=== PATIENT | female | born 1960 | race African-American/Black ===

== ENCOUNTER 2017-09-09 05:21 | Inpatient (IN) | payer OTHER ==
[2017-09-09 05:50] LABS: ADD MAN DIFF? NO
[2017-09-09 05:57] LABS: BASO % 1 % (0-3); EOS # 0.1 x10^3/uL (0.0-0.7); EOS % 2 % (0-3); HEMATOCRIT 41.3 % (36.0-47.0); HEMOGLOBIN 13.9 g/dL (12.0-15.5); LYMPH # 3.7 x10^3/uL (1.0-4.8); LYMPH % 42 % (24-48); MEAN CORPUSCULAR HEMOGLOBIN 28 pg (25-35); MEAN CORPUSCULAR HGB CONC 34 g/dL (31-37); MEAN CORPUSCULAR VOLUME 85 fL (79-100); MONO # 0.5 x10^3/uL (0.0-1.1); MONO % 6 % (0-9); NEUT # 4.5 x10^3uL (1.8-7.7); NEUT % 51 % (31-73); PLATELET COUNT 229 x10^3/uL (140-400); RED BLOOD COUNT 4.88 x10^6/uL (3.50-5.40); RED CELL DISTRIBUTION WIDTH 14.9 % (11.5-14.5); WHITE BLOOD COUNT 8.8 x10^3/uL (4.0-11.0)
[2017-09-09 06:08] LABS: ANION GAP 12 (6-14); BLOOD UREA NITROGEN 10 mg/dL (7-20); BUN/CREATININE RATIO 13 (6-20); CALCIUM 8.6 mg/dL (8.5-10.1); CARBON DIOXIDE 26 mmol/L (21-32); CHLORIDE 105 mmol/L (98-107); CREATININE 0.8 mg/dL (0.6-1.0); GFR 89.5; GLUCOSE 116 mg/dL (70-99); POTASSIUM 3.3 mmol/L (3.5-5.1); SODIUM 143 mmol/L (136-145)
[2017-09-09 06:10] LABS: BILIRUBIN,URINE NEGATIVE (NEG); CLARITY,URINE CLEAR; COLOR,URINE YELLOW; GLUCOSE,URINE NEGATIVE (NEG); NITRITE,URINE NEGATIVE (NEG); PROTEIN,URINE NEGATIVE (NEG-TRACE); UROBILINOGEN,URINE 0.2 mg/dL (0.2 mg/dL)
[2017-09-09 06:14] LABS: ALBUMIN 3.5 g/dL (3.4-5.0); TOTAL PROTEIN 7.2 g/dL (6.4-8.2)
[2017-09-09 06:15] LABS: ALBUMIN/GLOBULIN RATIO 0.9 (1.0-1.7); ALK PHOS 90 U/L (46-116); ALT (SGPT) 21 U/L (14-59); AST (SGOT) 17 U/L (15-37); LIPASE 99 U/L (73-393); TOTAL BILIRUBIN 0.4 mg/dL (0.2-1.0)
[2017-09-09 06:16] LABS: SQUAMOUS EPITHELIAL CELL,UR FEW /LPF
[2017-09-09 06:17] LABS: BACTERIA,URINE FEW /HPF (0-FEW); RBC,URINE OCC /HPF (0-2); YEAST,URINE PRESENT /HPF
[2017-09-09] MEDS: ONDANSETRON PF 4 MG/2 ML VIAL. IV (07:00)
[2017-09-09] MEDS: fentaNYL PF VIAL 100 MCG/2 ML VIAL IV ×4 (07:00→20:21)
[2017-09-09] MEDS: IV NORMAL SALINE 1000ML BAG 1,000 ML IV ×4 (07:00→16:33)
[2017-09-09 07:20] LABS: TROPONINI < 0.017 ng/mL (0.000-0.055)
[2017-09-09 07:23] LABS: CKMB INDEX 0.7 % (0-4); CKMB MASS 3.7 ng/mL (0.0-3.6); CREATINE KINASE 547 U/L (26-192)
[2017-09-09] MEDS: ASPIRIN CHEWABLE 81 MG TABLET. PO (07:55)
[2017-09-09] MEDS ORDERED: ONDANSETRON PF 4 MG/2 ML VIAL. IV (08:45)
[2017-09-09] MEDS: NITROGLYCERIN OINT 1 GM PACKET. TP ×4 (09:00→23:24)
[2017-09-09 11:57] LABS: TROPONINI < 0.017 ng/mL (0.000-0.055)
[2017-09-09] MEDS: PANTOPRAZOLE IV PUSH 40 MG VIAL. IVP (14:37)
[2017-09-09 14:51] LABS: TROPONINI < 0.017 ng/mL (0.000-0.055)
[2017-09-10] MEDS: IV NORMAL SALINE 1000ML BAG 1,000 ML IV (00:13)
[2017-09-10] MEDS: fentaNYL PF VIAL 100 MCG/2 ML VIAL IV ×3 (03:19→14:04)
[2017-09-10 04:06] LABS: ADD MAN DIFF? NO
[2017-09-10 04:25] LABS: BASO # 0.1 x10^3/uL (0.0-0.2); BASO % 1 % (0-3); EOS # 0.1 x10^3/uL (0.0-0.7); EOS % 2 % (0-3); HEMOGLOBIN 13.5 g/dL (12.0-15.5); LYMPH # 3.3 x10^3/uL (1.0-4.8); LYMPH % 46 % (24-48); MEAN CORPUSCULAR HEMOGLOBIN 29 pg (25-35); MEAN CORPUSCULAR HGB CONC 34 g/dL (31-37); MEAN CORPUSCULAR VOLUME 85 fL (79-100); MONO # 0.3 x10^3/uL (0.0-1.1); MONO % 4 % (0-9); NEUT # 3.4 x10^3uL (1.8-7.7); NEUT % 48 % (31-73); PLATELET COUNT 211 x10^3/uL (140-400); RED CELL DISTRIBUTION WIDTH 15.2 % (11.5-14.5); WHITE BLOOD COUNT 7.3 x10^3/uL (4.0-11.0)
[2017-09-10 05:17] LABS: ALBUMIN 3.1 g/dL (3.4-5.0); ALBUMIN/GLOBULIN RATIO 0.9 (1.0-1.7); ALK PHOS 76 U/L (46-116); ALT (SGPT) 17 U/L (14-59); ANION GAP 11 (6-14); AST (SGOT) 15 U/L (15-37); BLOOD UREA NITROGEN 3 mg/dL (7-20); BUN/CREATININE RATIO 5 (6-20); CALCIUM 8.2 mg/dL (8.5-10.1); CARBON DIOXIDE 25 mmol/L (21-32); CHLORIDE 109 mmol/L (98-107); CREATININE 0.6 mg/dL (0.6-1.0); GFR 124.7; GLUCOSE 110 mg/dL (70-99); POTASSIUM 3.1 mmol/L (3.5-5.1); SODIUM 145 mmol/L (136-145); TOTAL BILIRUBIN 0.4 mg/dL (0.2-1.0); TOTAL PROTEIN 6.5 g/dL (6.4-8.2)
[2017-09-10] MEDS: NITROGLYCERIN OINT 1 GM PACKET. TP ×4 (05:17→23:52)
[2017-09-10] MEDS ORDERED: PANTOPRAZOLE IV PUSH 40 MG VIAL. IVP (07:30)
[2017-09-10] MEDS: PANTOPRAZOLE IV PUSH 40 MG VIAL. IVP (09:02)
[2017-09-10] MEDS ORDERED: oxyCODONE/APAP 5/325 1 TAB TABLET PO (10:15)
[2017-09-10] MEDS ORDERED: PROCHLORPERAZINE 10 MG/2 ML VIAL. IV (11:45)
[2017-09-10] MEDS ORDERED: MORPHINE SULFATE 2 MG/ML DISP.SYRIN. IV (11:45)
[2017-09-10] MEDS ORDERED: LIDOCAINE 1% PF 2 ML VIAL. ID (11:45)
[2017-09-10] MEDS ORDERED: fentaNYL PF VIAL 100 MCG/2 ML VIAL IV ×2 (11:45)
[2017-09-10] MEDS: IV RINGERS,LACTATED 1000ML 1,000 ML IV (12:20)
[2017-09-10] MEDS ORDERED: PROPOFOL 40 ML IV (12:42)
[2017-09-10] MEDS ORDERED: LIDOCAINE 2% 100 MG/5 ML SYRINGE. (12:42)
[2017-09-10] MEDS: LIDOCAINE (700MG/PATCH) PATCH. TD (14:04)
[2017-09-10] MEDS: CAPSAICIN 0.025% TOPICAL CREAM 60GM TUBE. TP ×2 (14:12→19:48)
[2017-09-10] MEDS: POTASSIUM CHLORIDE 20 MEQ TABLET.ER. PO (16:17)
[2017-09-10] MEDS: oxyCODONE/APAP 10/325 1 TAB TABLET PO ×2 (19:46→23:47)
[2017-09-10] MEDS: IBUPROFEN 400 MG TABLET. PO (19:47)
[2017-09-10] MEDS: LISINOPRIL 10 MG TABLET PO (20:45)
[2017-09-10] MEDS ORDERED: hydrALAZINE 20 MG/ML VIAL. IVP (20:45)
[2017-09-10] MEDS: POLYETHYLENE GLYCOL 3350 17 GM PACKET. PO (23:47)
[2017-09-10] MEDS: DOCUSATE SODIUM 100 MG CAPSULE. PO (23:47)
[2017-09-10] MEDS: amLODIPine BESYLATE 10 MG TABLET PO (23:48)
[2017-09-11] MEDS: oxyCODONE/APAP 10/325 1 TAB TABLET PO (06:05)
[2017-09-11] MEDS: NITROGLYCERIN OINT 1 GM PACKET. TP ×2 (06:05→12:00)
[2017-09-11] MEDS: ONDANSETRON PF 4 MG/2 ML VIAL. IV (08:16)
[2017-09-11] MEDS ORDERED: NON FORMULARY ITEM (Pantoprazole Sodium (Protonix) 40 MG) PO (09:00)
[2017-09-11] MEDS: POLYETHYLENE GLYCOL 3350 17 GM PACKET. PO ×2 (10:07→13:00)
[2017-09-11] MEDS: CAPSAICIN 0.025% TOPICAL CREAM 60GM TUBE. TP ×3 (10:07→21:13)
[2017-09-11] MEDS: LIDOCAINE (700MG/PATCH) PATCH. TD (10:07)
[2017-09-11] MEDS: DOCUSATE SODIUM 100 MG CAPSULE. PO ×2 (10:08→21:13)
[2017-09-11] MEDS: CETIRIZINE HCL 10 MG TABLET. PO (10:08)
[2017-09-11] MEDS: PANTOPRAZOLE 40 MG TABLET.DR. PO (10:08)
[2017-09-11] MEDS: hydroCHLOROthiazide 25 MG TABLET PO (10:08)
[2017-09-11] MEDS: amLODIPine BESYLATE 10 MG TABLET PO (10:08)
[2017-09-11 10:54] LABS: POTASSIUM 3.6 mmol/L (3.5-5.1)
[2017-09-11] MEDS ORDERED: LIDO:MAALOX:DONNATAL 1:1:1 15 ML SINGLE DOSE SWSW (12:30)
[2017-09-11] MEDS ORDERED: fentaNYL PF VIAL 100 MCG/2 ML VIAL IV (14:00)
[2017-09-11] MEDS ORDERED: ONDANSETRON PF 4 MG/2 ML VIAL. IV (14:00)
[2017-09-11] MEDS ORDERED: ONDANSETRON ODT 4 MG TAB.RAPDIS. PO (14:00)
[2017-09-11] MEDS: BISACODYL 10 MG SUPP.RECT. PR (14:59)
[2017-09-11] MEDS: traMADol 50 MG TABLET PO (21:15)
[2017-09-12] MEDS: POLYETHYLENE GLYCOL 3350 17 GM PACKET. PO (09:56)
[2017-09-12] MEDS: LIDOCAINE (700MG/PATCH) PATCH. TD (09:57)
[2017-09-12] MEDS: CAPSAICIN 0.025% TOPICAL CREAM 60GM TUBE. TP (09:57)
[2017-09-12] MEDS: CETIRIZINE HCL 10 MG TABLET. PO (09:57)
[2017-09-12] MEDS: DOCUSATE SODIUM 100 MG CAPSULE. PO (09:58)
[2017-09-12] MEDS: PANTOPRAZOLE 40 MG TABLET.DR. PO (09:58)
[2017-09-12] MEDS: hydroCHLOROthiazide 25 MG TABLET PO (09:58)
[2017-09-12] MEDS: amLODIPine BESYLATE 10 MG TABLET PO (09:58)
[2017-09-12] MEDS: fentaNYL PF VIAL 100 MCG/2 ML VIAL IV (09:58)
[2017-09-12] MEDS: BISACODYL 5 MG TABLET.DR. PO (10:57)
[2017-09-12] MEDS: NICOTINE 21MG PATCH. TD (10:57)
[2017-09-12] MEDS ORDERED: BISACODYL 10 MG SUPP.RECT. PR (11:00)
== END 2017-09-12 15:43 | disposition home or self-care (01) | DRG 384 ==
LOC: ER 05:21 → 6 SOUTH 07:50
PROC: 0DJ08ZZ Inspection of Upper Intestinal Tract, Via Natural or Artificial Opening Endoscopic (ICD-10-PCS; principal; 2017-09-10 12:49)
PROC: 0DB68ZX Excision of Stomach, Via Natural or Artificial Opening Endoscopic, Diagnostic (ICD-10-PCS; 2017-09-10 12:49)
DX: K25.9 Gastric ulcer, unspecified as acute or chronic, without hemorrhage or perforation (principal); E66.01 Morbid (severe) obesity due to excess calories; K76.0 Fatty (change of) liver, not elsewhere classified; K22.10 Ulcer of esophagus without bleeding; Z68.38 Body mass index [BMI] 38.0-38.9, adult; E05.00 Thyrotoxicosis with diffuse goiter without thyrotoxic crisis or storm; F17.210 Nicotine dependence, cigarettes, uncomplicated; G47.33 Obstructive sleep apnea (adult) (pediatric); G89.29 Other chronic pain; I10 Essential (primary) hypertension; I25.2 Old myocardial infarction; K21.0 Gastro-esophageal reflux disease with esophagitis; K29.60 Other gastritis without bleeding; K59.09 Other constipation; M06.9 Rheumatoid arthritis, unspecified; M17.11 Unilateral primary osteoarthritis, right knee; Z80.0 Family history of malignant neoplasm of digestive organs; Z82.49 Family history of ischemic heart disease and other diseases of the circulatory system; Z86.010 Personal history of colon polyps; Z87.11 Personal history of peptic ulcer disease; Z90.49 Acquired absence of other specified parts of digestive tract; Z90.710 Acquired absence of both cervix and uterus; Z88.1 Allergy status to other antibiotic agents; K57.90 Diverticulosis of intestine, part unspecified, without perforation or abscess without bleeding
CPT/HCPCS: 36415; 72020; 73565; 74022; 74176; 76700; 78264; 80053; 81001; 82553; 83690; 84132; 84484; 85025; 88305; 88342; 93005; 93306; 96374; 96375; 97116-GP; 97162-GP; 97165-GO; 99285; 99285-25; A9541; C9113; J2405; J2704; J3010; J7030; J7120

== ENCOUNTER 2017-11-04 20:53 | Emergency (ER) | payer OTHER | END 2017-11-04 22:15 | disposition home or self-care (01) | LOC: ER 20:53 | DX: S89.91XA Unspecified injury of right lower leg, initial encounter (principal); M17.11 Unilateral primary osteoarthritis, right knee; Z72.0 Tobacco use; I10 Essential (primary) hypertension; Z88.1 Allergy status to other antibiotic agents; Z88.8 Allergy status to other drugs, medicaments and biological substances; X50.9XXA Other and unspecified overexertion or strenuous movements or postures, initial encounter; Y93.89 Activity, other specified; Y99.8 Other external cause status; Y92.89 Other specified places as the place of occurrence of the external cause | CPT/HCPCS: 29505; 73562; 99284-25 ==

== ENCOUNTER 2018-08-18 15:07 | Emergency (ER) | payer OTHER ==
[~2018-08-18] VITALS: Ht 154.9 cm; Wt 78.0 kg
[~2018-08-18 15:07] MED LIST: AMLO10TA8 PO; BETH5TAB PO; CAPS60CR2 TP; CETI10TA22 PO; CIPR500T94 PO; DOCU-109 PO; HYDR-2145 PO; HYDR-2161 PO; HYDR-3164 PO; LEVO100T5 PO; LEVO25TA55 PO; LEVO50TA PO; METO10TA81 PO; PANT20TA2 PO; POLY17PO28 PO; POTA20TA4 PO
--- NOTE | 2018-08-18 15:58 | PHYS DOC ---
Past Medical History Past Medical History: Arthritis, Hypertension, Other Additional Past Medical Histor: GRAVES DISEASE. Past Surgical History: Other Additional Past Surgical Histo: TUMOR REMOVAL, BOWEL RESECTION,EYE RECONSTRUCTION Alcohol Use: None Drug Use: None Adult General Chief Complaint Chief Complaint: KNEE SWELLING [facility] HPI 58-year-old female presents to ER via POV with complaints of bilateral knee pain for the past 2 days. Patient states she has chronic right knee pain and swelling and at times her knee nilesh causing her to fall. Patient states 2 days ago that occurred causing her to fall forward onto bilateral knees. Patient denies any acute change in swelling to right knee reports she has just had increased pain in her knees. Patient denies using any assistive devices while ambulating. Patient denies any [id number] medications for pain she reports she was told not to take any acetaminophen or NSAIDs due to past history of ulcers and liver disorder. Patient reports she has a brace at home for her right knee but does not wear because she feels it doesn't do her any good. She denies striking her head or having any head, neck, or back pain. Patient reports only injury was to bilateral knees during the fall. Review of Systems Review of Systems Constitutional: Denies fever or chills [] HENT: Denies head pain Respiratory: Denies cough or shortness of breath [] Cardiovascular: No additional information not addressed in HPI [] GI: Denies abdominal pain, nausea, vomiting : Denies incontinence Musculoskeletal: Denies back/neck pain. Reports bilat. knee pain Integument: Denies abrasions/bruising Neurologic: Denies headache, focal weakness or sensory changes. Denies numbness/ tingling All other systems were reviewed and found to be within normal limits, except as documented in this note. Current Medications Current Medications Current Medications Medications (Trade) Dose Ordered Sig/Fili Start Time Stop Time Status Last Admin Dose Admin Lidocaine (Lidoderm) 2 patch 1X ONCE 08/18/18 17:15 08/18/18 17:16 DC 08/18/18 17:15 2 PATCH Allergies Allergies Allergies Coded Allergies Type Severity Reaction Last Updated Verified lisinopril Allergy Severe "THROAT SWELLS" 09/10/17 Yes azithromycin Allergy Intermediate 09/09/17 Yes latex Allergy Intermediate Rash 03/31/18 Yes Physical Exam Physical Exam Constitutional: Well developed, well nourished, no acute distress, non-toxic appearance. [] HENT: Normocephalic, atraumatic, oropharynx moist, nose normal. [] Eyes: Pupils equal, conjunctiva normal, no discharge. [] Neck: Normal range of motion, no tenderness, supple, no stridor. [] Cardiovascular: Heart rate regular rhythm, no murmur [] Lungs & Thorax: Bilateral breath sounds clear to auscultation. Resp. equal/ nonlabored Skin: Warm, dry Back: No tenderness, full ROM Extremities: No cyanosis, no clubbing, ROM intact. Tender to palp. anterior bilat. knees- no deformities or visible injury. No posterior knee pain on palp. Pt is able to perform ROM bilat. knees. 2+ bilat. dorsalis pedis/posterior tibial. Neurologic: Alert and oriented X 3, normal motor function, normal sensory function, no focal deficits noted. [] Psychologic: Affect normal, judgement normal, mood normal. [] Current Patient Data Vital Signs Vital Signs Date Time Temp Pulse Resp B/P (MAP) Pulse Ox O2 Delivery O2 Flow Rate FiO2 08/18/18 16:03 86 20 139/92 (108) 95 Room Air 08/18/18 15:31 98.1 98.1 EKG EKG [] Radiology/Procedures Radiology/Procedures PROCEDURE: KNEE BILAT 3V KNEE BILAT 3V History: Fall 2 days ago with bilateral knee pain Comparison: June 01, 2018 right knee radiographs Findings: 3 views of bilateral knees for total of 6 views are submitted. No acute fracture or dislocation is identified of either knee. There is again severe narrowing of the medial compartment joint space of the right knee with associated osteophytes. Impression: 1. No acute fracture or dislocation is identified of either knee. There is advanced osteoarthritic change of the medial compartment of the right knee. Electronically signed by: Zahida Georges MD (08/18/2018 6:17 PM) [facility] DICTATED and SIGNED BY: ZAHIDA GEORGES MD DATE: 08/18/181814 Course & Med Decision Making Course & Med Decision Making Pertinent Imaging studies reviewed. (See chart for details) 1455: Dr. Stone viewed pt's xrays of bilat. knees with no findings of obvious displaced fx/dislocation- degenerative findings. Discussed this with pt along with plans for raquel wrap to bilat. knees and pt encouraged to use walker for ambulation to prevent falls. Will have lidoderm patch applied to bilat. knees prior to wraps. She remains PMS intact in bilat. LEs with no change from initial exam. Discussed need for f/u with orthopedic doctor- will provide referral info on discharge paperwork. Education provided on s&s to return to ER for and discharge instructions were discussed. Will provide Rx for walker. Dragon Disclaimer Dragon Disclaimer This electronic medical record was generated, in whole or in part, using a voice recognition dictation system. Departure Departure Impression: Primary Impression: Knee pain, bilateral Additional Impression: Fall Disposition: HOME, SELF-CARE Condition: STABLE Referrals: NO PCP (PCP) RUSSELL DEL VALLE II, MD Patient Instructions: Fall Prevention and Home Safety, Knee Pain, Knee Wraps ( Elastic Bandage) and RICE Additional Instructions: Use walker to prevent falls. Wear raquel wraps on knees for support while walking. Follow-up with orthopedic doctor for further care and evaluation. Scripts Lidocaine (Lidocaine) 1 Each Adh..patch 1 EACH TP Q12HR PRN for PAIN, #6 PATCH 0 Refills apply patch to knee- remove every 12 hours and reapply if needed Prov: DEJA NICOLE APRN 08/18/18 Problem Qualifiers DEJA NICOLE APRN Aug 18, 2018 15:58
[2018-08-18 16:03] VITALS: BP 139/92
[2018-08-18] MEDS: LIDOCAINE (700MG/PATCH) PATCH. TD ONE (17:15)
[2018-08-18] MEDS ORDERED: LIDO700A39 TP (17:20)
--- NOTE | 2018-08-18 18:22 | RAD ---
KNEE BILAT 3V History: Fall 2 days ago with bilateral knee pain Comparison: June 01, 2018 right knee radiographs Findings: 3 views of bilateral knees for total of 6 views are submitted. No acute fracture or dislocation is identified of either knee. There is again severe narrowing of the medial compartment joint space of the right knee with associated osteophytes. Impression: 1. No acute fracture or dislocation is identified of either knee. There is advanced osteoarthritic change of the medial compartment of the right knee. Electronically signed by: Rudy Sims MD (08/18/2018 6:17 PM) [facility]
== END 2018-08-18 17:42 | disposition home or self-care (01) ==
LOC: ER 15:07
DX: G89.29 Other chronic pain (principal); M25.562 Pain in left knee; M25.561 Pain in right knee; G89.11 Acute pain due to trauma; I10 Essential (primary) hypertension; Z88.1 Allergy status to other antibiotic agents; Z91.040 Latex allergy status; Z88.6 Allergy status to analgesic agent; W18.39XA Other fall on same level, initial encounter; Y93.89 Activity, other specified; Y92.89 Other specified places as the place of occurrence of the external cause; Y99.8 Other external cause status
CPT/HCPCS: 73562; 99284

== ENCOUNTER 2018-09-24 17:49 | Inpatient (IN) | payer OTHER ==
[~2018-09-24] VITALS: Ht 154.9 cm; Wt 75.5 kg
[~2018-09-24 17:49] MED LIST changes: +LIDO700A39 TP
[2018-09-24] MEDS ORDERED: IV NORMAL SALINE 1000ML BAG 1,000 ML IV ONE (19:00)
[2018-09-24] MEDS ORDERED: MORPHINE SULFATE 4 MG/ML VIAL. IV ONE ×2 (19:00→21:15)
[2018-09-24] MEDS ORDERED: FAMOTIDINE 20 MG/2 ML VIAL IVP ONE (19:00)
[2018-09-24 19:16] LABS: BASO # 0.1 x10^3/uL (0.0-0.2); BASO % 1 % (0-3); EOS # 0.1 x10^3/uL (0.0-0.7); EOS % 2 % (0-3); HEMATOCRIT 44.4 % (36.0-47.0); HEMOGLOBIN 14.8 g/dL (12.0-15.5); LYMPH # 2.2 x10^3/uL (1.0-4.8); LYMPH % 46 % (24-48); MEAN CORPUSCULAR HEMOGLOBIN 29 pg (25-35); MEAN CORPUSCULAR HGB CONC 33 g/dL (31-37); MEAN CORPUSCULAR VOLUME 88 fL (79-100); MONO # 0.2 x10^3/uL (0.0-1.1); MONO % 4 % (0-9); NEUT # 2.3 x10^3uL (1.8-7.7); NEUT % 48 % (31-73); PLATELET COUNT 242 x10^3/uL (140-400); RED BLOOD COUNT 5.07 x10^6/uL (3.50-5.40); RED CELL DISTRIBUTION WIDTH 14.7 % (11.5-14.5); WHITE BLOOD COUNT 4.9 x10^3/uL (4.0-11.0)
[2018-09-24 19:34] LABS: INFLUENZA A PATIENT NEGATIVE (NEGATIVE); INFLUENZA B PATIENT NEGATIVE (NEGATIVE)
[2018-09-24 19:39] LABS: ALBUMIN 3.1 g/dL (3.4-5.0); ALBUMIN/GLOBULIN RATIO 0.9 (1.0-1.7); CALCIUM 8.9 mg/dL (8.5-10.1); CREATININE 0.9 mg/dL (0.6-1.0); GFR 77.8; TOTAL BILIRUBIN 0.4 mg/dL (0.2-1.0); TOTAL PROTEIN 6.6 g/dL (6.4-8.2)
[2018-09-24 19:44] LABS: POTASSIUM 2.7 mmol/L (3.5-5.1)
[2018-09-24] MEDS ORDERED: IOHEXOL 300 MG/ML 100ML VIAL. IV ONE (20:00)
[2018-09-24] MEDS ORDERED: CONTRAST GIVEN. MC PRN (20:00)
[2018-09-24] MEDS ORDERED: POTASSIUM CHLORIDE 20 MEQ TABLET.ER. PO ONE ×2 (20:15→21:15)
--- NOTE | 2018-09-24 20:25 | RAD ---
CT ABD PELV W/ IV CONTRST ONLY Indication: Severe right-sided abdominal pain Technique: Postcontrast CT imaging was performed of the abdomen and pelvis, multiplanar reconstruction images submitted. One or more of the following individualized dose reduction techniques were utilized for this examination: 1. Automated exposure control 2. Adjustment of the mA and/or kV according to patient size 3. Use of iterative reconstruction technique. Comparison: May 30, 2018 Findings: There is coronary calcification. There is again small quantity of pericardial fluid. There again has been cholecystectomy. Extra hepatic common bile duct is dilated about 1.3 cm although similar. There is visualization of the pancreatic duct as seen previously. No new significant abnormality is identified of the liver, spleen, pancreas. Both kidneys enhance, no hydronephrosis. There is no significant adrenal nodularity. Evaluation of bowel is limited without oral contrast. Bowel is not significantly dilated. No free fluid or free air is identified. There is some retained stool in the colon. There is sigmoid diverticulosis. There is some fecalization of the more distal small bowel. Normal caliber appendix is visualized. There is small umbilical fascial defect, no bowel. There is some distention of the urinary bladder. There is distention of stomach. There is likely hemangiomas of the right T12 vertebral body. There is more advanced degenerative disc disease at what is considered L2-3, to lesser degree at what is considered L5-S1 and L4-5. There is facet degenerative change of the inferior lumbar spine. There is osteoarthritic change of the bilateral hips. IMPRESSION: 1. There is no CT evidence of acute appendicitis. There is retained stool variably in the colon, also nonspecific fecalization of distal small bowel. There is sigmoid diverticulosis. 2. There is stable biliary ductal dilatation. There again has been cholecystectomy. 3. There is coronary calcification. 4. There is distention of the stomach. Electronically signed by: Rudy Sims MD (09/24/2018 8:22 PM) [facility]
[2018-09-24 20:36] LABS: BILIRUBIN,URINE NEGATIVE (NEG); CLARITY,URINE CLEAR; COLOR,URINE YELLOW; NITRITE,URINE NEGATIVE (NEG); PH,URINE 7.5; PROTEIN,URINE NEGATIVE (NEG-TRACE); UROBILINOGEN,URINE 0.2 mg/dL (0.2 mg/dL)
[2018-09-24 20:40] LABS: AMPHETAMINE/METHAMPHETAMINE NEG (NEG); BARBITURATES NEG (NEG); BENZODIAZEPINES NEG (NEG); CANNABINOIDS NEG (NEG); COCAINE POS (NEG); METHADONE NEG (NEG); OPIATES POS (NEG); PHENCYCLIDINE NEG (NEG)
[2018-09-24 20:45] LABS: BACTERIA,URINE FEW /HPF (0-FEW); RBC,URINE 0 /HPF (0-2); SQUAMOUS EPITHELIAL CELL,UR MOD /LPF
[2018-09-24] MEDS ORDERED: MAGNESIUM CITRATE 296 ML SOLUTION. PO ONE (21:15)
--- NOTE | 2018-09-24 22:19 | PHYS DOC ---
Past Medical History Past Medical History: Arthritis, Hypertension, Other Additional Past Medical Histor: GRAVES DISEASE. Past Surgical History: Hysterectomy, Other Additional Past Surgical Histo: TUMOR REMOVAL, BOWEL RESECTION,EYE RECONSTRUCTION Alcohol Use: None Drug Use: None Adult General Chief Complaint Chief Complaint: ABDOMINAL PAIN HPI HPI Patient is a 58 year old female with history of arthritis, hypertension, chronic abdominal pain who presents to the ED today complaining of 10 out of 10 chronic generalized abdominal pain that has been going on for years. Patient states she has history of stomach ulcers as well as tumors in her abdomen which were removed. Patient denies any nausea, vomiting. Denies any diarrhea. Denies anything specific exacerbating or relieving her symptoms. She states she does not have any doctor. She states she used to follow up with [facility] as well as PCP but has not been seen for a long time. Review of Systems Review of Systems Constitutional: Denies fever or chills [] Eyes: Denies change in visual acuity, redness, or eye pain [] HENT: Denies nasal congestion or sore throat [] Respiratory: Denies cough or shortness of breath [] Cardiovascular: No additional information not addressed in HPI [] GI: Reports chronic abdominal pain, denies nausea, vomiting, bloody stools or diarrhea [] : Denies dysuria or hematuria [] Musculoskeletal: Denies back pain or joint pain [] Integument: Denies rash or skin lesions [] Neurologic: Denies headache, focal weakness or sensory changes [] All other systems were reviewed and found to be within normal limits, except as documented in this note. Current Medications Current Medications Current Medications Medications (Trade) Dose Ordered Sig/Fili Start Time Stop Time Status Last Admin Dose Admin Famotidine (Pepcid Vial) 20 mg 1X ONCE 09/24/18 19:00 09/24/18 19:01 DC 09/24/18 19:13 20 MG Info (CONTRAST GIVEN -- Rx MONITORING) 1 each PRN DAILY PRN 09/24/18 20:00 09/26/18 19:59 Iohexol (Omnipaque 300 Mg/ml) 75 ml 1X ONCE 09/24/18 20:00 09/24/18 20:01 DC 09/24/18 20:02 75 ML Magnesium Citrate (Citroma) 296 ml 1X ONCE 09/24/18 21:15 09/24/18 21:16 DC 09/24/18 21:15 296 ML Morphine Sulfate (Morphine Sulfate) 4 mg 1X ONCE 09/24/18 21:15 09/24/18 21:16 DC 09/24/18 21:51 4 MG Potassium Chloride (Klor-Con) 40 meq 1X ONCE 09/24/18 21:15 09/24/18 21:16 DC 09/24/18 21:51 40 MEQ Sodium Chloride 1,000 ml @ 1,000 mls/hr 1X ONCE 09/24/18 19:00 09/24/18 19:59 DC 09/24/18 19:13 1,000 MLS/HR Allergies Allergies Allergies Coded Allergies Type Severity Reaction Last Updated Verified lisinopril Allergy Severe "THROAT SWELLS" 09/10/17 Yes azithromycin Allergy Intermediate 09/09/17 Yes latex Allergy Intermediate Rash 03/31/18 Yes Physical Exam Physical Exam Constitutional: Well developed, well nourished, no acute distress, non-toxic appearance. [] HENT: Normocephalic, atraumatic, bilateral external ears normal, oropharynx moist, no oral exudates, nose normal. [] Eyes: PERRLA, EOMI, conjunctiva normal, no discharge. [] Neck: Normal range of motion, no tenderness, supple, no stridor. [] Cardiovascular:Heart rate regular rhythm, no murmur [] Lungs & Thorax: Bilateral breath sounds clear to auscultation [] Abdomen: Rounded abdomen. Bowel sounds normal, soft, diffuse tenderness throughout the abdomen, no masses, no pulsatile masses. [] Skin: Warm, dry, no erythema, no rash. [] Back: No tenderness, no CVA tenderness. [] Extremities: No tenderness, no cyanosis, no clubbing, ROM intact, no edema. [] Neurologic: Alert and oriented X 3, normal motor function, normal sensory function, no focal deficits noted. [] Psychologic: Affect normal, judgement normal, mood normal. [] Current Patient Data Vital Signs Vital Signs Date Time Temp Pulse Resp B/P (MAP) Pulse Ox O2 Delivery O2 Flow Rate FiO2 09/24/18 21:03 74 18 180/106 (130) 96 Room Air 09/24/18 18:05 98.1 98.1 Lab Values Laboratory Tests Test 09/24/18 19:04 09/24/18 19:08 09/24/18 20:23 White Blood Count 4.9 x10^3/uL (4.0-11.0) Red Blood Count 5.07 x10^6/uL (3.50-5.40) Hemoglobin 14.8 g/dL (12.0-15.5) Hematocrit 44.4 % (36.0-47.0) Mean Corpuscular Volume 88 fL (79-100) Mean Corpuscular Hemoglobin 29 pg (25-35) Mean Corpuscular Hemoglobin Concent 33 g/dL (31-37) Red Cell Distribution Width 14.7 % (11.5-14.5) H Platelet Count 242 x10^3/uL (140-400) Neutrophils (%) (Auto) 48 % (31-73) Lymphocytes (%) (Auto) 46 % (24-48) Monocytes (%) (Auto) 4 % (0-9) Eosinophils (%) (Auto) 2 % (0-3) Basophils (%) (Auto) 1 % (0-3) Neutrophils # (Auto) 2.3 x10^3uL (1.8-7.7) Lymphocytes # (Auto) 2.2 x10^3/uL (1.0-4.8) Monocytes # (Auto) 0.2 x10^3/uL (0.0-1.1) Eosinophils # (Auto) 0.1 x10^3/uL (0.0-0.7) Basophils # (Auto) 0.1 x10^3/uL (0.0-0.2) Sodium Level 144 mmol/L (136-145) Potassium Level 2.7 mmol/L (3.5-5.1) *L Chloride Level 106 mmol/L (98-107) Carbon Dioxide Level 30 mmol/L (21-32) Anion Gap 8 (6-14) Blood Urea Nitrogen 12 mg/dL (7-20) Creatinine 0.9 mg/dL (0.6-1.0) Estimated GFR (Cockcroft-Gault) 77.8 BUN/Creatinine Ratio 13 (6-20) Glucose Level 125 mg/dL (70-99) H Calcium Level 8.9 mg/dL (8.5-10.1) Total Bilirubin 0.4 mg/dL (0.2-1.0) Aspartate Amino Transferase (AST) 37 U/L (15-37) Alanine Aminotransferase (ALT) 50 U/L (14-59) Alkaline Phosphatase 85 U/L (46-116) Total Protein 6.6 g/dL (6.4-8.2) Albumin 3.1 g/dL (3.4-5.0) L Albumin/Globulin Ratio 0.9 (1.0-1.7) L Lipase 100 U/L (73-393) Ethyl Alcohol Level < 10 mg/dL (0-10) Influenza Type A Antigen Negative (NEGATIVE) Influenza Type B Antigen Negative (NEGATIVE) Urine Collection Type Unknown Urine Color Yellow Urine Clarity Clear Urine pH 7.5 Urine Specific [place] >=1.030 Urine Protein Negative mg/dL (NEG-TRACE) Urine Glucose (UA) Negative mg/dL (NEG) Urine Ketones (Stick) Negative mg/dL (NEG) Urine Blood Negative (NEG) Urine Nitrite Negative (NEG) Urine Bilirubin Negative (NEG) Urine Urobilinogen Dipstick 0.2 mg/dL (0.2 mg/dL) Urine Leukocyte Esterase Trace (NEG) Urine RBC 0 /HPF (0-2) Urine WBC 1-4 /HPF (0-4) Urine Squamous Epithelial Cells Mod /LPF Urine Bacteria Few /HPF (0-FEW) Urine Opiates Screen Pos (NEG) Urine Methadone Screen Neg (NEG) Urine Barbiturates Neg (NEG) Urine Phencyclidine Screen Neg (NEG) Urine Amphetamine/Methamphetamine Neg (NEG) Urine Benzodiazepines Screen Neg (NEG) Urine Cocaine Screen Pos (NEG) Urine Cannabinoids Screen Neg (NEG) Urine Ethyl Alcohol Neg (NEG) Laboratory Tests 09/24/18 19:04 Laboratory Tests 09/24/18 19:04 EKG EKG [] Radiology/Procedures Radiology/Procedures []PROCEDURE: CT ABD PELV W/ IV CONTRST ONLY CT ABD PELV W/ IV CONTRST ONLY Indication: Severe right-sided abdominal pain Technique: Postcontrast CT imaging was performed of the abdomen and pelvis, multiplanar reconstruction images submitted. One or more of the following individualized dose reduction techniques were utilized for this examination: 1. Automated exposure control 2. Adjustment of the mA and/or kV according to patient size 3. Use of iterative reconstruction technique. Comparison: May 30, 2018 Findings: There is coronary calcification. There is again small quantity of pericardial fluid. There again has been cholecystectomy. Extra hepatic common bile duct is dilated about 1.3 cm although similar. There is visualization of the pancreatic duct as seen previously. No new significant abnormality is identified of the liver, spleen, pancreas. Both kidneys enhance, no hydronephrosis. There is no significant adrenal nodularity. Evaluation of bowel is limited without oral contrast. Bowel is not significantly dilated. No free fluid or free air is identified. There is some retained stool in the colon. There is sigmoid diverticulosis. There is some fecalization of the more distal small bowel. Normal caliber appendix is visualized. There is small umbilical fascial defect, no bowel. There is some distention of the urinary bladder. There is distention of stomach. There is likely hemangiomas of the right T12 vertebral body. There is more advanced degenerative disc disease at what is considered L2-3, to lesser degree at what is considered L5-S1 and L4-5. There is facet degenerative change of the inferior lumbar spine. There is osteoarthritic change of the bilateral hips. IMPRESSION: 1. There is no CT evidence of acute appendicitis. There is retained stool variably in the colon, also nonspecific fecalization of distal small bowel. There is sigmoid diverticulosis. 2. There is stable biliary ductal dilatation. There again has been cholecystectomy. 3. There is coronary calcification. 4. There is distention of the stomach. Electronically signed by: Zahida Georges MD (09/24/2018 8:22 PM) [facility] DICTATED and SIGNED BY: ZAHIDA GEORGES MD DATE: 09/24/182021 Course & Med Decision Making Course & Med Decision Making Pertinent Labs and Imaging studies reviewed. (See chart for details) This is a 58-year-old female patient presented to the ED today with chronic abdominal pain. CBC with a normal WBC, CMP with potassium of 2.7, urine analysis is negative for active infection, drug screen noted for cocaine use and opiates which were likely given in the ED considering the time the urine was collected. CT of the abdomen and pelvic was negative for appendicitis, noted for constipation. Also noted for sigmoid diverticulosis, coronary calcification. There is distention of the stomach. Patient was given 40 mEq of potassium 2 in the ED. Admitted with normal saline with potassium Consulted with Dr. Graves who accepted patient for admission. Routine consult placed for GI Dragon Disclaimer Dragon Disclaimer This electronic medical record was generated, in whole or in part, using a voice recognition dictation system. Departure Departure Impression: Primary Impression: Chronic abdominal pain Additional Impressions: Hypokalemia Constipation Disposition: ADMITTED INPATIENT Condition: STABLE Referrals: NO PCP (PCP) Problem Qualifiers Additional Impressions: Constipation Constipation type: unspecified constipation type Qualified Codes: K59.00 - Constipation, unspecified JES JARAMILLO APRN Sep 24, 2018 22:19
[2018-09-24] MEDS ORDERED: MORPHINE SULFATE 4 MG/ML VIAL. IV PRN (22:30)
[2018-09-24] MEDS ORDERED: ONDANSETRON PF 4 MG/2 ML VIAL. IV PRN (22:30)
[2018-09-24 23:12] VITALS: BP 199/109
[2018-09-24] MEDS ORDERED: CLON0.2T PO (23:35)
--- NOTE | 2018-09-24 23:36 | NUR ---
Admission note: Pt arrived to [facility] 554 @ 2235 via ED bed. Pt A&Ox4, drowsy from pain medication. Pt able to answer all admission questions. at bedside. MIV fluids started on pt. Dr. Ely beltran for high blood pressure medication and gave the okay to restart all home medications except hold hydrochlorothiazide. Also able to give Clonidine 0.2mg PO TID PRN for HTN.
[2018-09-24] MEDS ORDERED: LIDOCAINE TP PRN (23:45)
[2018-09-24] MEDS: amLODIPine BESYLATE 10 MG TABLET PO SCH (23:47)
[2018-09-25 03:00] VITALS: BP 167/95
[2018-09-25 04:08] LABS: BASO % 0 % (0-3); EOS # 0.1 x10^3/uL (0.0-0.7); EOS % 2 % (0-3); HEMATOCRIT 44.8 % (36.0-47.0); HEMOGLOBIN 14.8 g/dL (12.0-15.5); LYMPH # 2.8 x10^3/uL (1.0-4.8); LYMPH % 50 % (24-48); MEAN CORPUSCULAR HEMOGLOBIN 29 pg (25-35); MEAN CORPUSCULAR HGB CONC 33 g/dL (31-37); MEAN CORPUSCULAR VOLUME 88 fL (79-100); MONO # 0.2 x10^3/uL (0.0-1.1); MONO % 4 % (0-9); NEUT # 2.5 x10^3uL (1.8-7.7); NEUT % 44 % (31-73); PLATELET COUNT 231 x10^3/uL (140-400); RED BLOOD COUNT 5.07 x10^6/uL (3.50-5.40); RED CELL DISTRIBUTION WIDTH 14.6 % (11.5-14.5); WHITE BLOOD COUNT 5.7 x10^3/uL (4.0-11.0)
[2018-09-25 04:25] LABS: CALCIUM 8.3 mg/dL (8.5-10.1); CREATININE 0.9 mg/dL (0.6-1.0); GFR 77.8; POTASSIUM 3.6 mmol/L (3.5-5.1)
[2018-09-25] MEDS ORDERED: LEVOTHYROXINE 100 MCG TABLET PO SCH (06:00)
[2018-09-25 07:00] VITALS: BP 134/73
[2018-09-25] MEDS: DOCUSATE SODIUM 100 MG CAPSULE. PO SCH ×2 (07:47→21:57)
[2018-09-25] MEDS: CETIRIZINE HCL 10 MG TABLET. PO SCH (07:47)
[2018-09-25] MEDS: METOCLOPRAMIDE 10 MG TABLET. PO SCH ×3 (07:47→21:57)
[2018-09-25] MEDS: PANTOPRAZOLE 40 MG TABLET.DR. PO SCH (07:47)
[2018-09-25] MEDS: POTASSIUM CHLORIDE 20 MEQ TABLET.ER. PO SCH (07:47)
[2018-09-25] MEDS: POLYETHYLENE GLYCOL 3350 17 GM PACKET. PO SCH ×2 (07:48→21:57)
[2018-09-25] MEDS: BETHANECHOL CHLORIDE 10 MG TABLET. PO SCH ×3 (07:48→16:29)
[2018-09-25] MEDS: amLODIPine BESYLATE 10 MG TABLET PO SCH (07:48)
[2018-09-25] MEDS: LIDOCAINE (700MG/PATCH) PATCH. TD SCH (07:48)
[2018-09-25] MEDS: CAPSAICIN 0.025% TOPICAL CREAM 60GM TUBE. TP SCH ×3 (07:49→21:56)
--- NOTE | 2018-09-25 07:49 | PDOC1 ---
History and Physical Date of Admission Date of Admission DATE: 09/25/18 TIME: 07:38 Identification/Chief Complaint Chief Complaint Abdominal pain History of Present Illness History of Present Illness 58 year old female with history of arthritis, hypertension, chronic abdominal pain who presents to the ED today complaining of 10 out of 10 chronic generalized abdominal pain that has been going on for years. Patient states she has history of stomach ulcers as well as tumors in her abdomen which were removed. Patient denies any nausea, vomiting. Denies any diarrhea. Denies anything specific exacerbating or relieving her symptoms. She states she does not have any doctor and that the last prescriptions she obtained were from me, states she has no prescriptions and has not taken her thyroid medication since I last gave it during her last hospital stay May 2018 (given 3 months scripts at that time). Complains of right knee pain when I advised her to walk around to help her BM Apparently was seen by [facility], she has been put off many times hence she did not go back. She was advised TKA at that time, some 2 years ago Potassium 2.7. Positive for cocaine again. CT shows retained stool and distended stomach. Last seen by GI with EGD 09/2017 showing reflux, gastric emptying study positive for T1/2 of 122 min, started on reglan last year and given bethanchol by myself when she could not afford reglan Previously reported normal colonoscopy @ [facility] <5 year ago. H/o colon polyps and diverticulosis. Her continues to interrupt during examination to ask me for prescription refills for a hospital stay from over 2 months ago. Past Medical History Cardiovascular: HTN Pulmonary: Other CENTRAL NERVOUS SYSTEM: Other GI: Diverticulosis, GERD, Peptic Ulcer disease, Other Heme/Onc: No pertinent hx Hepatobiliary: No pertinent hx Psych: No pertinent hx Musculoskeletal: Osteoarthritis Rheumatologic: Rheumatoid arthritis Infectious disease: No pertinent hx Renal/: UTI Endocrine: Hypothyroidism, Other Past Surgical History Past Surgical History: Cholecystectomy, Hysterectomy, Other Family History Family History: Heart Disease Social History ALCOHOL: occassional Drugs: Cocaine Current Medications Current Medications Current Medications Famotidine (Pepcid Vial) 20 mg 1X ONCE IVP Last administered on 09/24/18at 19: 13; Start 09/24/18 at 19:00; Stop 09/24/18 at 19:01; Status DC Sodium Chloride 1,000 ml @ 1,000 mls/hr 1X ONCE IV Last administered on 19:13; Start 09/24/18 at 19:00; Stop 09/24/18 at 19:59; Status DC Morphine Sulfate (Morphine Sulfate) 4 mg 1X ONCE IV Last administered on at 19:13; Start 09/24/18 at 19:00; Stop 09/24/18 at 19:01; Status DC Iohexol (Omnipaque 300 Mg/ml) 75 ml 1X ONCE IV Last administered on 09/24/18at 20:02; Start 09/24/18 at 20:00; Stop 09/24/18 at 20:01; Status DC Info (CONTRAST GIVEN -- Rx MONITORING) 1 each PRN DAILY PRN MC SEE COMMENTS; Start 09/24/18 at 20:00; Stop 09/26/18 at 19:59 Potassium Chloride (Klor-Con) 40 meq 1X ONCE PO Last administered on at 20:17; Start 09/24/18 at 20:15; Stop 09/24/18 at 20:16; Status DC Morphine Sulfate (Morphine Sulfate) 4 mg 1X ONCE IV Last administered on at 21:51; Start 09/24/18 at 21:15; Stop 09/24/18 at 21:16; Status DC Magnesium Citrate (Citroma) 296 ml 1X ONCE PO Last administered on 09/24/18at 21:15; Start 09/24/18 at 21:15; Stop 09/24/18 at 21:16; Status DC Potassium Chloride (Klor-Con) 40 meq 1X ONCE PO Last administered on at 21:51; Start 09/24/18 at 21:15; Stop 09/24/18 at 21:16; Status DC Ondansetron HCl (Zofran) 4 mg PRN Q8HRS PRN IV NAUSEA/VOMITING Last administered on 09/24/18at 23:11; Start 09/24/18 at 22:30; Stop 09/25/18 at 22:29 Morphine Sulfate (Morphine Sulfate) 4 mg PRN Q2HR PRN IV PAIN Last administered on 09/25/18at 02:34; Start 09/24/18 at 22:30; Stop 09/25/18 at 22:29 Potassium Chloride/Sodium Chloride 1,000 ml @ 75 mls/hr [id number] IV Last administered on 09/24/18at 23:11; Start 09/24/18 at 22:30 Amlodipine Besylate (Norvasc) 10 mg DAILY PO Last administered on 09/24/18at 23: 47; Start 09/24/18 at 23:45 Cetirizine HCl (ZyrTEC) 10 mg DAILY PO ; Start 09/25/18 at 09:00 Docusate Sodium (Colace) 100 mg BID PO ; Start 09/25/18 at 09:00 Acetaminophen/ Hydrocodone Bitart (Lortab 5/325) 1 tab PRN Q6HRS PRN PO PAIN; Start 09/24/18 at 23:45 Levothyroxine Sodium (Synthroid) 100 mcg DAILY06 PO Last administered on at 06:01; Start 09/25/18 at 06:00 Metoclopramide HCl (Reglan) 10 mg TID PO ; Start 09/25/18 at 09:00 Potassium Chloride (Klor-Con) 20 meq DAILYWBKFT PO ; Start 09/25/18 at 08:00 Bethanechol Chloride (Urecholine) 5 mg TIDAC PO ; Start 09/25/18 at 07:30 Capsaicin (Zostrix) 1 bridger TID TP ; Start 09/25/18 at 09:00 Ciprofloxacin (Cipro) 500 mg BID PO ; Start 09/25/18 at 09:00 Non-Formulary Medication (Lidocaine ) 1 each Q12HR PRN TP PAIN; Start 09/24/18 at 23:45; Status UNV Pantoprazole Sodium (Protonix) 40 mg DAILYAC PO ; Start 09/25/18 at 07:30 Polyethylene Glycol (miraLAX PACKET) 17 gm BID PO ; Start 09/25/18 at 09:00 Lidocaine (Lidoderm) 1 patch DAILY TD ; Start 09/25/18 at 09:00 Miscellaneous (Lidoderm Patch Removal) 1 ea QHS MC ; Start 09/25/18 at 21:00 Active Scripts Active Lidocaine 1 Each Adh..patch 1 Each TP Q12HR PRN apply patch to knee- remove every 12 hours and reapply if needed Bethanechol Chloride 5 Mg Tablet 5 Mg PO TIDAC 30 Days Levothyroxine Sodium 100 Mcg Tablet 1 Tab PO DAILY 30 Days Capsaicin 60 Gm Cream..g. 1 Bridger TP TID 30 Days Cipro (Ciprofloxacin Hcl) 500 Mg Tablet 1 Tab PO BID 5 Days Polyethylene Glycol 3350 17 Gm Powd.pack 17 Gm PO BID 14 Days Klor-Con M20 (Potassium Chloride) 20 Meq Tab.er.prt 20 Meq PO DAILYWBKFT 14 Days [place] 5-325 Tablet (Acetaminophen/Hydrocodone Bitart) 1 Each Tablet 1 Tab PO PRN Q6HRS PRN Protonix (Pantoprazole Sodium) 20 Mg Tablet.dr 40 Mg PO DAILY Reglan (Metoclopramide Hcl) 10 Mg Tablet 1 Tab PO TID Reported Clonidine Hcl 0.2 Mg Tablet 0.2 Mg PO TID PRN Colace (Docusate Sodium) 100 Mg Capsule 1 Cap PO BID Zyrtec (Cetirizine Hcl) 10 Mg Tablet 1 Tab PO DAILY Hydrochlorothiazide Tablet (Hydrochlorothiazide) 25 Mg Tablet 1 Tab PO DAILY Amlodipine Besylate 10 Mg Tablet 10 Mg PO DAILY Allergies Allergies: Coded Allergies: lisinopril (Verified Allergy, Severe, "THROAT SWELLS", 09/10/17) azithromycin (Verified Allergy, Intermediate, 09/09/17) latex (Verified Allergy, Intermediate, Rash, 03/31/18) per -dx 10 yrs ago ROS General: YES: Fatigue, Malaise, Appetite; No: Chills, Night Sweats, Other PSYCHOLOGICAL ROS: YES: Anxiety, Concentration difficultie; No: Behavioral Disorder, Decreased libido, Depression, Disorientation, Hallucinations, Hostility, Irritablity, Memory difficulties, Mood Swings, Obsessive thoughts, Physical abuse, Sexual abuse, Sleep disturbances, Suicidal ideation, Other Eyes: No Blurry vision, No Decreased vision, No Double vision, No Dry eyes, No Excessive tearing, No Eye Pain, No Itchy Eyes, No Loss of vision, No Photophobia , No Scotomata, No Uses contacts, No Uses glasses, No Other HEENT: No: Heacaches, Visual Changes, Hearing change, Nasal congestion, Nasal discharge, Oral lesions, Sinus pain, Sore Throat, Epistaxis, Sneezing, Snoring, Tinnitus, Vertigo, Vocal changes, Other ALLERGY AND IMMUNOLOGY: No: Hives, Insect Bite Sensitivity, Itchy/Watery Eyes, Nasal Congestion, Post Nasal Drip, Seasonal Allergies, Other Hematological and Lymphatic: No: Bleeding Problems, Blood Clots, Blood Transfusions, Brusing, Night Sweats, Pallor, Swollen Lymph Nodes, Other ENDOCRINE: No: Breast Changes, Galactorrhea, Hair Pattern Changes, Hot Flashes , Malaise/lethargy, Mood Swings, Palpitations, Polydipsia/polyuria, Skin Changes , Temperature Intolerance, Unexpected Weight Changes, Other Breast: No New/Changing Breast Lumps, No Nipple changes, No Nipple discharge, No Other Respiratory: No: Cough, Hemoptysis, Orthopnea, Pleuritic Pain, Shortness of breath, SOB with excertion, Sputum Changes, Stridor, Tachypnea, Wheezing, Other Cardiovascular: No Chest Pain, No Palpitations, No Orthopnea, No Paroxysmal Noc. Dyspnea, No Edema, No Lt Headedness, No Other Gastrointestinal: Yes Nausea, Yes Abdominal Pain, Yes Constipation; No Vomiting, No Diarrhea, No Melena, No Hematochezia, No Other Genitourinary: No Dysuria, No Frequency, No Incontinence, No Hematuria, No Retention, No Discharge, No Urgency, No Pain, No Flank Pain, No Other, No , No , No , No , No , No , No Musculoskeletal: Yes Joint Pain, Yes Muscular Weakness; No Gait Disturbance, No Joint Stiffness, No Joint Swelling, No Muscle Pain, No Pain In:, No Swelling In:, No Other Neurological: No Behavorial Changes, No Bowel/Bladder ControlChng, No Confusion , No Dizziness, No Gait Disturbance, No Headaches, No Impaired Coord/balance, No Memory Loss, No Numbness/Tingling, No Seizures, No Speech Problems, No Tremors, No Visual Changes, No Weakness, No Other Skin: No Dry Skin, No Eczema, No Hair Changes, No Lumps, No Mole Changes, No Mottling, No Nail Changes, No Pruritus, No Rash, No Skin Lesion Changes, No Other, No Acne Physical Exam General: Alert, Oriented X3, Cooperative, No acute distress HEENT: Atraumatic, PERRLA, EOMI, Mucous membr. moist/pink Lungs: Clear to auscultation, Normal air movement Heart: S1S2, RRR, no gallops, no murmurs Abdomen: Normal bowel sounds, Soft, No hepatosplenomegaly, No masses, Other ( LLQ tender) Rectal Exam: not examined Extremities: No clubbing, No cyanosis, No edema, Normal pulses, No tenderness/ swelling Skin: No rashes, No breakdown, No significant lesion Neuro: Normal gait, Normal speech, Strength at 5/5 X4 ext, Normal tone, Sensation intact, Cranial nerves 3-12 NL, Reflexes 2+ Psych/Mental Status: Mental status NL, Mood NL Vitals Vitals Vital Signs Date Time Temp Pulse Resp B/P (MAP) Pulse Ox O2 Delivery O2 Flow Rate FiO2 09/25/18 03:04 Room Air 09/25/18 03:00 97.8 78 19 167/95 (119) 98 97.8 Labs Labs Laboratory Tests Test 09/24/18 19:04 09/24/18 19:08 09/24/18 20:23 09/25/18 02:30 White Blood Count 4.9 x10^3/uL (4.0-11.0) 5.7 x10^3/uL (4.0-11.0) Red Blood Count 5.07 x10^6/uL (3.50-5.40) 5.07 x10^6/uL (3.50-5.40) Hemoglobin 14.8 g/dL (12.0-15.5) 14.8 g/dL (12.0-15.5) Hematocrit 44.4 % (36.0-47.0) 44.8 % (36.0-47.0) Mean Corpuscular Volume 88 fL (79-100) 88 fL (79-100) Mean Corpuscular Hemoglobin 29 pg (25-35) 29 pg (25-35) Mean Corpuscular Hemoglobin Concent 33 g/dL (31-37) 33 g/dL (31-37) Red Cell Distribution Width 14.7 % (11.5-14.5) 14.6 % (11.5-14.5) Platelet Count 242 x10^3/uL (140-400) 231 x10^3/uL (140-400) Neutrophils (%) (Auto) 48 % (31-73) 44 % (31-73) Lymphocytes (%) (Auto) 46 % (24-48) 50 % (24-48) Monocytes (%) (Auto) 4 % (0-9) 4 % (0-9) Eosinophils (%) (Auto) 2 % (0-3) 2 % (0-3) Basophils (%) (Auto) 1 % (0-3) 0 % (0-3) Neutrophils # (Auto) 2.3 x10^3uL (1.8-7.7) 2.5 x10^3uL (1.8-7.7) Lymphocytes # (Auto) 2.2 x10^3/uL (1.0-4.8) 2.8 x10^3/uL (1.0-4.8) Monocytes # (Auto) 0.2 x10^3/uL (0.0-1.1) 0.2 x10^3/uL (0.0-1.1) Eosinophils # (Auto) 0.1 x10^3/uL (0.0-0.7) 0.1 x10^3/uL (0.0-0.7) Basophils # (Auto) 0.1 x10^3/uL (0.0-0.2) 0.0 x10^3/uL (0.0-0.2) Sodium Level 144 mmol/L (136-145) 142 mmol/L (136-145) Potassium Level 2.7 mmol/L (3.5-5.1) 3.6 mmol/L (3.5-5.1) Chloride Level 106 mmol/L (98-107) 106 mmol/L (98-107) Carbon Dioxide Level 30 mmol/L (21-32) 24 mmol/L (21-32) Anion Gap 8 (6-14) 12 (6-14) Blood Urea Nitrogen 12 mg/dL (7-20) 8 mg/dL (7-20) Creatinine 0.9 mg/dL (0.6-1.0) 0.9 mg/dL (0.6-1.0) Estimated GFR (Cockcroft-Gault) 77.8 77.8 BUN/Creatinine Ratio 13 (6-20) Glucose Level 125 mg/dL (70-99) 90 mg/dL (70-99) Calcium Level 8.9 mg/dL (8.5-10.1) 8.3 mg/dL (8.5-10.1) Total Bilirubin 0.4 mg/dL (0.2-1.0) Aspartate Amino Transf (AST/SGOT) 37 U/L (15-37) Alanine Aminotransferase (ALT/SGPT) 50 U/L (14-59) Alkaline Phosphatase 85 U/L (46-116) Total Protein 6.6 g/dL (6.4-8.2) Albumin 3.1 g/dL (3.4-5.0) Albumin/Globulin Ratio 0.9 (1.0-1.7) Lipase 100 U/L (73-393) Ethyl Alcohol Level < 10 mg/dL (0-10) Influenza Type A Antigen Negative (NEGATIVE) Influenza Type B Antigen Negative (NEGATIVE) Urine Collection Type Unknown Urine Color Yellow Urine Clarity Clear Urine pH 7.5 Urine Specific [place] >=1.030 Urine Protein Negative mg/dL (NEG-TRACE) Urine Glucose (UA) Negative mg/dL (NEG) Urine Ketones (Stick) Negative mg/dL (NEG) Urine Blood Negative (NEG) Urine Nitrite Negative (NEG) Urine Bilirubin Negative (NEG) Urine Urobilinogen Dipstick 0.2 mg/dL (0.2 mg/dL) Urine Leukocyte Esterase Trace (NEG) Urine RBC 0 /HPF (0-2) Urine WBC 1-4 /HPF (0-4) Urine Squamous Epithelial Cells Mod /LPF Urine Bacteria Few /HPF (0-FEW) Urine Opiates Screen Pos (NEG) Urine Methadone Screen Neg (NEG) Urine Barbiturates Neg (NEG) Urine Phencyclidine Screen Neg (NEG) Urine Amphetamine/Methamphetamine Neg (NEG) Urine Benzodiazepines Screen Neg (NEG) Urine Cocaine Screen Pos (NEG) Urine Cannabinoids Screen Neg (NEG) Urine Ethyl Alcohol Neg (NEG) Laboratory Tests Test 09/24/18 19:04 09/24/18 19:08 09/24/18 20:23 09/25/18 02:30 White Blood Count 4.9 x10^3/uL (4.0-11.0) 5.7 x10^3/uL (4.0-11.0) Red Blood Count 5.07 x10^6/uL (3.50-5.40) 5.07 x10^6/uL (3.50-5.40) Hemoglobin 14.8 g/dL (12.0-15.5) 14.8 g/dL (12.0-15.5) Hematocrit 44.4 % (36.0-47.0) 44.8 % (36.0-47.0) Mean Corpuscular Volume 88 fL (79-100) 88 fL (79-100) Mean Corpuscular Hemoglobin 29 pg (25-35) 29 pg (25-35) Mean Corpuscular Hemoglobin Concent 33 g/dL (31-37) 33 g/dL (31-37) Red Cell Distribution Width 14.7 % (11.5-14.5) 14.6 % (11.5-14.5) Platelet Count 242 x10^3/uL (140-400) 231 x10^3/uL (140-400) Neutrophils (%) (Auto) 48 % (31-73) 44 % (31-73) Lymphocytes (%) (Auto) 46 % (24-48) 50 % (24-48) Monocytes (%) (Auto) 4 % (0-9) 4 % (0-9) Eosinophils (%) (Auto) 2 % (0-3) 2 % (0-3) Basophils (%) (Auto) 1 % (0-3) 0 % (0-3) Neutrophils # (Auto) 2.3 x10^3uL (1.8-7.7) 2.5 x10^3uL (1.8-7.7) Lymphocytes # (Auto) 2.2 x10^3/uL (1.0-4.8) 2.8 x10^3/uL (1.0-4.8) Monocytes # (Auto) 0.2 x10^3/uL (0.0-1.1) 0.2 x10^3/uL (0.0-1.1) Eosinophils # (Auto) 0.1 x10^3/uL (0.0-0.7) 0.1 x10^3/uL (0.0-0.7) Basophils # (Auto) 0.1 x10^3/uL (0.0-0.2) 0.0 x10^3/uL (0.0-0.2) Sodium Level 144 mmol/L (136-145) 142 mmol/L (136-145) Potassium Level 2.7 mmol/L (3.5-5.1) 3.6 mmol/L (3.5-5.1) Chloride Level 106 mmol/L (98-107) 106 mmol/L (98-107) Carbon Dioxide Level 30 mmol/L (21-32) 24 mmol/L (21-32) Anion Gap 8 (6-14) 12 (6-14) Blood Urea Nitrogen 12 mg/dL (7-20) 8 mg/dL (7-20) Creatinine 0.9 mg/dL (0.6-1.0) 0.9 mg/dL (0.6-1.0) Estimated GFR (Cockcroft-Gault) 77.8 77.8 BUN/Creatinine Ratio 13 (6-20) Glucose Level 125 mg/dL (70-99) 90 mg/dL (70-99) Calcium Level 8.9 mg/dL (8.5-10.1) 8.3 mg/dL (8.5-10.1) Total Bilirubin 0.4 mg/dL (0.2-1.0) Aspartate Amino Transf (AST/SGOT) 37 U/L (15-37) Alanine Aminotransferase (ALT/SGPT) 50 U/L (14-59) Alkaline Phosphatase 85 U/L (46-116) Total Protein 6.6 g/dL (6.4-8.2) Albumin 3.1 g/dL (3.4-5.0) Albumin/Globulin Ratio 0.9 (1.0-1.7) Lipase 100 U/L (73-393) Ethyl Alcohol Level < 10 mg/dL (0-10) Influenza Type A Antigen Negative (NEGATIVE) Influenza Type B Antigen Negative (NEGATIVE) Urine Collection Type Unknown Urine Color Yellow Urine Clarity Clear Urine pH 7.5 Urine Specific [place] >=1.030 Urine Protein Negative mg/dL (NEG-TRACE) Urine Glucose (UA) Negative mg/dL (NEG) Urine Ketones (Stick) Negative mg/dL (NEG) Urine Blood Negative (NEG) Urine Nitrite Negative (NEG) Urine Bilirubin Negative (NEG) Urine Urobilinogen Dipstick 0.2 mg/dL (0.2 mg/dL) Urine Leukocyte Esterase Trace (NEG) Urine RBC 0 /HPF (0-2) Urine WBC 1-4 /HPF (0-4) Urine Squamous Epithelial Cells Mod /LPF Urine Bacteria Few /HPF (0-FEW) Urine Opiates Screen Pos (NEG) Urine Methadone Screen Neg (NEG) Urine Barbiturates Neg (NEG) Urine Phencyclidine Screen Neg (NEG) Urine Amphetamine/Methamphetamine Neg (NEG) Urine Benzodiazepines Screen Neg (NEG) Urine Cocaine Screen Pos (NEG) Urine Cannabinoids Screen Neg (NEG) Urine Ethyl Alcohol Neg (NEG) Images Images CT Abdomen/pelvis - 1. There is no CT evidence of acute appendicitis. There is retained stool variably in the colon, also nonspecific fecalization of distal small bowel. There is sigmoid diverticulosis. 2. There is stable biliary ductal dilatation. There again has been cholecystectomy. 3. There is coronary calcification. 4. There is distention of the stomach. VTE Prophylaxis Ordered VTE Prophylaxis Devices: No VTE Pharmacological Prophylaxi: Yes Assessment/Plan Assessment/Plan A/P: Constipation/obstipation - combination of hypothyroidism and opioid induced. Will start her bowel regimen again and restart thyroid meds. Enema now then when necessary. Consult GI Narcotic dependence/tolerance - will keep her opioid use to minimum. Low threshold for relistor use Abdominal pain with constipation on CT scan - will treat this as source Right knee OA, needs TKA as per [facility] Hypokalemia - K 2.7, replace IV and PO Hypothyroidism - TSH 32 this visit. I had increased her levothyroxine to 100mcg in May, may need a higher dose Cocaine use - counseled against use GERD - prior gastritis on EGD Gastroparesis - will cont eddi [place]. GI consulted [facility] - General diet PPX - SCDs FULL CODE Inpatient for symptomatic hypothyroidism, abdominal pain. At least 2 midnights CHUN TEJADA MD Sep 25, 2018 07:49
[2018-09-25] MEDS: HYDROcodone/APAP 5/325MG 1 TAB TABLET PO PRN ×2 (07:55→16:29)
--- NOTE | 2018-09-25 08:26 | RAD ---
EXAM: AP, oblique, lateral and tangential patellar views of the left knee DATE: 09/24/2018 9:25 PM INDICATION: fall few days ago left knee pain COMPARISON: No Prior FINDINGS: Alpha moderate left knee joint effusion. Neutral patellar tracking. Mild medial compartment joint space narrowing with small marginal osteophytes. IMPRESSION: 1. No evidence of acute fracture or dislocation. 2. Small left knee joint effusion 3. Left knee osteoarthritis with medial compartment joint space narrowing. Electronically signed by: Rjai Masterson MD (09/25/2018 8:23 AM) [id number]
[2018-09-25] MEDS ORDERED: CIPROFLOXACIN HCL 250 MG TABLET. PO SCH (09:00)
[2018-09-25] MEDS ORDERED: POLYETHYLENE GLYCOL 3350 17 GM PACKET. PO SCH (09:15)
[2018-09-25] MEDS ORDERED: SENNOSIDES/DOCUSATE 8.6/50MG TABLET. PO PRN (09:15)
--- NOTE | 2018-09-25 09:42 | PDOC2 ---
GI CONSULT Reason For Consult: Chronic abd pain HPI: HPI: 58 y/o female who we have seen more than once. Evaluated in ER for abdominal pain and admitted. History is challenging this morning - she is mostly interested in eating more than clear liquids. Reports some ongoing right-sided discomfort, said she felt like she had to throw up at one point but didn't, and said she had a small stool yesterday. I asked her if she has been taking pantoprazole, Reglan, and/or Miralax - "I'm out of everything." Positive for cocaine again. CT shows retained stool and distended stomach. Past GI workup: EGD 09/2017: reflux, H. pylori negative erosive gastritis and small ulcers. GES 09/2017: abnormal/delayed w/ T1/2 of 122 min. Previously reported normal colonoscopy @ [facility] <5 year ago. H/o colon polyps and diverticulosis. H/o SBR for "cysts." S/p cholecystectomy. Chronic abd pain. PMH: PMH: HTN, ZIA, GERD, PUD, chronic abd pain, gastroparesis, colon polyps, diverticulosis, arthritis, allergic rhinitis, hypothyroidism (h/o Grave's disease), substance abuse (cocaine) hysterectomy, cholecystectomy, SBR FH: Family History: Cancer (father - stomach) Social History: Smoke: 1 pack per day ALCOHOL: occassional Drugs: Cocaine ROS: GEN: Denies fevers, chills, sweats HEENT: Denies blurred vision, sore throat CV: Denies chest pain RESP: Denies shortness of air, cough GI: Per HPI : Denies hematuria, dysuria ENDO: Denies weight changes NEURO: Denies confusion, dizziness MSK: Denies weakness, joint pain/swelling SKIN: Denies jaundice, pruritus Vitals: Vitals: Vital Signs Date Time Temp Pulse Resp B/P (MAP) Pulse Ox O2 Delivery O2 Flow Rate FiO2 09/25/18 08:55 20 98 Room Air 09/25/18 07:48 78 167/95 09/25/18 07:00 97.5 97.5 Labs: Labs: Laboratory Tests Test 09/24/18 19:04 09/24/18 19:08 09/24/18 20:23 09/25/18 02:30 White Blood Count 4.9 x10^3/uL (4.0-11.0) 5.7 x10^3/uL (4.0-11.0) Red Blood Count 5.07 x10^6/uL (3.50-5.40) 5.07 x10^6/uL (3.50-5.40) Hemoglobin 14.8 g/dL (12.0-15.5) 14.8 g/dL (12.0-15.5) Hematocrit 44.4 % (36.0-47.0) 44.8 % (36.0-47.0) Mean Corpuscular Volume 88 fL (79-100) 88 fL (79-100) Mean Corpuscular Hemoglobin 29 pg (25-35) 29 pg (25-35) Mean Corpuscular Hemoglobin Concent 33 g/dL (31-37) 33 g/dL (31-37) Red Cell Distribution Width 14.7 % (11.5-14.5) 14.6 % (11.5-14.5) Platelet Count 242 x10^3/uL (140-400) 231 x10^3/uL (140-400) Neutrophils (%) (Auto) 48 % (31-73) 44 % (31-73) Lymphocytes (%) (Auto) 46 % (24-48) 50 % (24-48) Monocytes (%) (Auto) 4 % (0-9) 4 % (0-9) Eosinophils (%) (Auto) 2 % (0-3) 2 % (0-3) Basophils (%) (Auto) 1 % (0-3) 0 % (0-3) Neutrophils # (Auto) 2.3 x10^3uL (1.8-7.7) 2.5 x10^3uL (1.8-7.7) Lymphocytes # (Auto) 2.2 x10^3/uL (1.0-4.8) 2.8 x10^3/uL (1.0-4.8) Monocytes # (Auto) 0.2 x10^3/uL (0.0-1.1) 0.2 x10^3/uL (0.0-1.1) Eosinophils # (Auto) 0.1 x10^3/uL (0.0-0.7) 0.1 x10^3/uL (0.0-0.7) Basophils # (Auto) 0.1 x10^3/uL (0.0-0.2) 0.0 x10^3/uL (0.0-0.2) Sodium Level 144 mmol/L (136-145) 142 mmol/L (136-145) Potassium Level 2.7 mmol/L (3.5-5.1) 3.6 mmol/L (3.5-5.1) Chloride Level 106 mmol/L (98-107) 106 mmol/L (98-107) Carbon Dioxide Level 30 mmol/L (21-32) 24 mmol/L (21-32) Anion Gap 8 (6-14) 12 (6-14) Blood Urea Nitrogen 12 mg/dL (7-20) 8 mg/dL (7-20) Creatinine 0.9 mg/dL (0.6-1.0) 0.9 mg/dL (0.6-1.0) Estimated GFR (Cockcroft-Gault) 77.8 77.8 BUN/Creatinine Ratio 13 (6-20) Glucose Level 125 mg/dL (70-99) 90 mg/dL (70-99) Calcium Level 8.9 mg/dL (8.5-10.1) 8.3 mg/dL (8.5-10.1) Total Bilirubin 0.4 mg/dL (0.2-1.0) Aspartate Amino Transf (AST/SGOT) 37 U/L (15-37) Alanine Aminotransferase (ALT/SGPT) 50 U/L (14-59) Alkaline Phosphatase 85 U/L (46-116) Total Protein 6.6 g/dL (6.4-8.2) Albumin 3.1 g/dL (3.4-5.0) Albumin/Globulin Ratio 0.9 (1.0-1.7) Lipase 100 U/L (73-393) Ethyl Alcohol Level < 10 mg/dL (0-10) Influenza Type A Antigen Negative (NEGATIVE) Influenza Type B Antigen Negative (NEGATIVE) Urine Collection Type Unknown Urine Color Yellow Urine Clarity Clear Urine pH 7.5 Urine Specific [place] >=1.030 Urine Protein Negative mg/dL (NEG-TRACE) Urine Glucose (UA) Negative mg/dL (NEG) Urine Ketones (Stick) Negative mg/dL (NEG) Urine Blood Negative (NEG) Urine Nitrite Negative (NEG) Urine Bilirubin Negative (NEG) Urine Urobilinogen Dipstick 0.2 mg/dL (0.2 mg/dL) Urine Leukocyte Esterase Trace (NEG) Urine RBC 0 /HPF (0-2) Urine WBC 1-4 /HPF (0-4) Urine Squamous Epithelial Cells Mod /LPF Urine Bacteria Few /HPF (0-FEW) Urine Opiates Screen Pos (NEG) Urine Methadone Screen Neg (NEG) Urine Barbiturates Neg (NEG) Urine Phencyclidine Screen Neg (NEG) Urine Amphetamine/Methamphetamine Neg (NEG) Urine Benzodiazepines Screen Neg (NEG) Urine Cocaine Screen Pos (NEG) Urine Cannabinoids Screen Neg (NEG) Urine Ethyl Alcohol Neg (NEG) Magnesium Level 2.5 mg/dL (1.8-2.4) Thyroid Stimulating Hormone (TSH) 32.609 uIU/mL (0.358-3.74) Allergies: Coded Allergies: lisinopril (Verified Allergy, Severe, "THROAT SWELLS", 09/10/17) azithromycin (Verified Allergy, Intermediate, 09/09/17) latex (Verified Allergy, Intermediate, Rash, 03/31/18) per -dx 10 yrs ago Medications: Current Medications Medications (Trade) Dose Ordered Sig/Fili Route PRN Reason Start Time Stop Time Status Last Admin Dose Admin Famotidine (Pepcid Vial) 20 mg 1X ONCE IVP 09/24/18 19:00 09/24/18 19:01 DC 09/24/18 19:13 Sodium Chloride 1,000 ml @ 1,000 mls/hr 1X ONCE IV 09/24/18 19:00 09/24/18 19:59 DC 09/24/18 19:13 Morphine Sulfate (Morphine Sulfate) 4 mg 1X ONCE IV 09/24/18 19:00 09/24/18 19:01 DC 09/24/18 19:13 Iohexol (Omnipaque 300 Mg/ml) 75 ml 1X ONCE IV 09/24/18 20:00 09/24/18 20:01 DC 09/24/18 20:02 Potassium Chloride (Klor-Con) 40 meq 1X ONCE PO 09/24/18 20:15 09/24/18 20:16 DC 09/24/18 20:17 Morphine Sulfate (Morphine Sulfate) 4 mg 1X ONCE IV 09/24/18 21:15 09/24/18 21:16 DC 09/24/18 21:51 Magnesium Citrate (Citroma) 296 ml 1X ONCE PO 09/24/18 21:15 09/24/18 21:16 DC 09/24/18 21:15 Potassium Chloride (Klor-Con) 40 meq 1X ONCE PO 09/24/18 21:15 09/24/18 21:16 DC 09/24/18 21:51 Ondansetron HCl (Zofran) 4 mg PRN Q8HRS PRN IV NAUSEA/VOMITING 09/24/18 22:30 09/25/18 22:29 09/24/18 23:11 Morphine Sulfate (Morphine Sulfate) 4 mg PRN Q2HR PRN IV PAIN 09/24/18 22:30 09/25/18 22:29 09/25/18 02:34 Potassium Chloride/Sodium Chloride 1,000 ml @ 75 mls/hr [id number] IV 09/24/18 22:30 09/24/18 23:11 Amlodipine Besylate (Norvasc) 10 mg DAILY PO 09/24/18 23:45 09/25/18 07:48 Cetirizine HCl (ZyrTEC) 10 mg DAILY PO 09/25/18 09:00 09/25/18 07:47 Docusate Sodium (Colace) 100 mg BID PO 09/25/18 09:00 09/25/18 07:47 Acetaminophen/ Hydrocodone Bitart (Lortab 5/325) 1 tab PRN Q6HRS PRN PO PAIN 09/24/18 23:45 09/25/18 07:55 Levothyroxine Sodium (Synthroid) 100 mcg DAILY06 PO 09/25/18 06:00 09/25/18 06:01 Metoclopramide HCl (Reglan) 10 mg TID PO 09/25/18 09:00 09/25/18 07:47 Potassium Chloride (Klor-Con) 20 meq DAILYWBKFT PO 09/25/18 08:00 09/25/18 07:47 Bethanechol Chloride (Urecholine) 5 mg TIDAC PO 09/25/18 07:30 09/25/18 07:48 Capsaicin (Zostrix) 1 aisha TID TP 09/25/18 09:00 09/25/18 07:49 Ciprofloxacin (Cipro) 500 mg BID PO 09/25/18 09:00 09/25/18 07:47 Pantoprazole Sodium (Protonix) 40 mg DAILYAC PO 09/25/18 07:30 09/25/18 07:47 Polyethylene Glycol (miraLAX PACKET) 17 gm BID PO 09/25/18 09:00 09/25/18 07:48 Imaging: Imaging: CT A/P 09/24 IMPRESSION: 1. There is no CT evidence of acute appendicitis. There is retained stool variably in the colon, also nonspecific fecalization of distal small bowel. There is sigmoid diverticulosis. 2. There is stable biliary ductal dilatation. There again has been cholecystectomy. 3. There is coronary calcification. 4. There is distention of the stomach. L Knee X-Ray 09/24 IMPRESSION: 1. No evidence of acute fracture or dislocation. 2. Small left knee joint effusion 3. Left knee osteoarthritis with medial compartment joint space narrowing. PE: GEN: NAD, sits up and lays down repeatedly in bed HEENT: Atraumatic, PERRL LUNGS: CTAB HEART: RRR ABD: NABS, S/ND, vague right-sided tenderness EXTREMITY: No edema SKIN: No rashes, no jaundice NEURO/PSYCH: A & O 3, anxious A/P: A/P: Chronic abd pain, non-compliance Hypokalemia - resolved Hypothyroidism - TSH 32 +cocaine GERD, h/o small gastric ulcers - EGD 09/2017 Mild gastroparesis CRC screen, h/o colon polyps Diverticulosis S/p cholecystectomy H/o SBR -- Resumed PPI, Reglan, and constipation meds here - agree. ADAT. Encouraged compliance. EVELYN RIVER Sep 25, 2018 09:42
[2018-09-25] MEDS: LUBIPROSTONE 8 MCG CAPSULE PO SCH ×2 (10:51→16:29)
[2018-09-25 11:00] VITALS: BP 141/74
--- NOTE | 2018-09-25 11:55 | NUR ---
SW following. Discussed with RN, RN advised no SW needs at this time. SW will continue to follow.
[2018-09-25 15:00] VITALS: BP 122/63
[2018-09-25 19:00] VITALS: BP 137/69
[2018-09-25] MEDS: PATCH REMOVAL. MC SCH (21:00)
[2018-09-25 23:00] VITALS: BP 132/77
[2018-09-26] VITALS (8 sets, daily range): BP systolic 124–145; BP diastolic 68–89
[2018-09-26] MEDS: LEVOTHYROXINE 125 MCG TABLET PO SCH (06:00)
--- NOTE | 2018-09-26 07:49 | PDOC ---
PROGRESS NOTES Chief Complaint Chief Complaint A/P: Constipation/obstipation - combination of hypothyroidism and opioid induced. Will start her bowel regimen again and restart thyroid meds. Enema now then when necessary. Consult GI Narcotic dependence/tolerance - will keep her opioid use to minimum. Low threshold for relistor use Abdominal pain with constipation on CT scan - will treat this as source Right knee OA, needs TKA as per [facility] Hypokalemia - K 2.7, replace IV and PO Hypothyroidism - TSH 32 this visit. I had increased her levothyroxine to 100mcg in May, may need a higher dose Cocaine use - counseled against use GERD - prior gastritis on EGD Gastroparesis - will cont reglan, bethanachol. GI consulted FEN - General diet PPX - SCDs FULL CODE Inpatient for symptomatic hypothyroidism, abdominal pain. At least 2 midnights History of Present Illness History of Present Illness 58 year old female with history of arthritis, hypertension, chronic abdominal pain who presents to the ED today complaining of 10 out of 10 chronic generalized abdominal pain that has been going on for years. Patient states she has history of stomach ulcers as well as tumors in her abdomen which were removed. Patient denies any nausea, vomiting. Denies any diarrhea. Denies anything specific exacerbating or relieving her symptoms. She states she does not have any doctor and that the last prescriptions she obtained were from me, states she has no prescriptions and has not taken her thyroid medication since I last gave it during her last hospital stay May 2018 (given 3 months scripts at that time). Complains of right knee pain when I advised her to walk around to help her BM Apparently was seen by [facility], she has been put off many times hence she did not go back. She was advised TKA at that time, some 2 years ago Potassium 2.7 corrected to > [address] Positive for [address] shows retained stool and distended stomach. Last seen by GI with EGD 09/2017 showing reflux, gastric emptying study positive for T1/2 of 122 min, started on reglan last year and given bethanchol by myself when she could not afford reglan Previously reported normal colonoscopy @ [facility] <5 year ago. H/o colon polyps and diverticulosis. Her continues to interrupt during examination to ask me for prescription refills for a hospital stay from over 2 months ago. Feeling somewhat improved today. Still difficult to understand her speech Plan: can d/c after BM, likely tomorrow Needs thyroid meds longer term Vitals Vitals Vital Signs Date Time Temp Pulse Resp B/P (MAP) Pulse Ox O2 Delivery O2 Flow Rate FiO2 09/26/18 04:43 98.0 81 20 130/84 (99) 97 98.0 09/25/18 17:18 Room Air Physical Exam General: Alert, Oriented X3, Cooperative, No acute distress Lungs: Clear Abdomen: Normal bowel sounds, Soft, No hepatosplenomegaly, No masses, Other ( LLQ tender) Extremities: No clubbing, No cyanosis, No edema, Normal pulses, No tenderness/ swelling Skin: No rashes, No breakdown, No significant lesion Comment Review of Relevant I have reviewed the following items shirin (where applicable) has been applied. Labs Laboratory Tests Test 09/24/18 19:04 09/24/18 19:08 09/24/18 20:23 09/25/18 02:30 White Blood Count 4.9 x10^3/uL (4.0-11.0) 5.7 x10^3/uL (4.0-11.0) Red Blood Count 5.07 x10^6/uL (3.50-5.40) 5.07 x10^6/uL (3.50-5.40) Hemoglobin 14.8 g/dL (12.0-15.5) 14.8 g/dL (12.0-15.5) Hematocrit 44.4 % (36.0-47.0) 44.8 % (36.0-47.0) Mean Corpuscular Volume 88 fL (79-100) 88 fL (79-100) Mean Corpuscular Hemoglobin 29 pg (25-35) 29 pg (25-35) Mean Corpuscular Hemoglobin Concent 33 g/dL (31-37) 33 g/dL (31-37) Red Cell Distribution Width 14.7 % (11.5-14.5) 14.6 % (11.5-14.5) Platelet Count 242 x10^3/uL (140-400) 231 x10^3/uL (140-400) Neutrophils (%) (Auto) 48 % (31-73) 44 % (31-73) Lymphocytes (%) (Auto) 46 % (24-48) 50 % (24-48) Monocytes (%) (Auto) 4 % (0-9) 4 % (0-9) Eosinophils (%) (Auto) 2 % (0-3) 2 % (0-3) Basophils (%) (Auto) 1 % (0-3) 0 % (0-3) Neutrophils # (Auto) 2.3 x10^3uL (1.8-7.7) 2.5 x10^3uL (1.8-7.7) Lymphocytes # (Auto) 2.2 x10^3/uL (1.0-4.8) 2.8 x10^3/uL (1.0-4.8) Monocytes # (Auto) 0.2 x10^3/uL (0.0-1.1) 0.2 x10^3/uL (0.0-1.1) Eosinophils # (Auto) 0.1 x10^3/uL (0.0-0.7) 0.1 x10^3/uL (0.0-0.7) Basophils # (Auto) 0.1 x10^3/uL (0.0-0.2) 0.0 x10^3/uL (0.0-0.2) Sodium Level 144 mmol/L (136-145) 142 mmol/L (136-145) Potassium Level 2.7 mmol/L (3.5-5.1) 3.6 mmol/L (3.5-5.1) Chloride Level 106 mmol/L (98-107) 106 mmol/L (98-107) Carbon Dioxide Level 30 mmol/L (21-32) 24 mmol/L (21-32) Anion Gap 8 (6-14) 12 (6-14) Blood Urea Nitrogen 12 mg/dL (7-20) 8 mg/dL (7-20) Creatinine 0.9 mg/dL (0.6-1.0) 0.9 mg/dL (0.6-1.0) Estimated GFR (Cockcroft-Gault) 77.8 77.8 BUN/Creatinine Ratio 13 (6-20) Glucose Level 125 mg/dL (70-99) 90 mg/dL (70-99) Calcium Level 8.9 mg/dL (8.5-10.1) 8.3 mg/dL (8.5-10.1) Total Bilirubin 0.4 mg/dL (0.2-1.0) Aspartate Amino Transf (AST/SGOT) 37 U/L (15-37) Alanine Aminotransferase (ALT/SGPT) 50 U/L (14-59) Alkaline Phosphatase 85 U/L (46-116) Total Protein 6.6 g/dL (6.4-8.2) Albumin 3.1 g/dL (3.4-5.0) Albumin/Globulin Ratio 0.9 (1.0-1.7) Lipase 100 U/L (73-393) Ethyl Alcohol Level < 10 mg/dL (0-10) Influenza Type A Antigen Negative (NEGATIVE) Influenza Type B Antigen Negative (NEGATIVE) Urine Collection Type Unknown Urine Color Yellow Urine Clarity Clear Urine pH 7.5 Urine Specific [place] >=1.030 Urine Protein Negative mg/dL (NEG-TRACE) Urine Glucose (UA) Negative mg/dL (NEG) Urine Ketones (Stick) Negative mg/dL (NEG) Urine Blood Negative (NEG) Urine Nitrite Negative (NEG) Urine Bilirubin Negative (NEG) Urine Urobilinogen Dipstick 0.2 mg/dL (0.2 mg/dL) Urine Leukocyte Esterase Trace (NEG) Urine RBC 0 /HPF (0-2) Urine WBC 1-4 /HPF (0-4) Urine Squamous Epithelial Cells Mod /LPF Urine Bacteria Few /HPF (0-FEW) Urine Opiates Screen Pos (NEG) Urine Methadone Screen Neg (NEG) Urine Barbiturates Neg (NEG) Urine Phencyclidine Screen Neg (NEG) Urine Amphetamine/Methamphetamine Neg (NEG) Urine Benzodiazepines Screen Neg (NEG) Urine Cocaine Screen Pos (NEG) Urine Cannabinoids Screen Neg (NEG) Urine Ethyl Alcohol Neg (NEG) Magnesium Level 2.5 mg/dL (1.8-2.4) Thyroid Stimulating Hormone (TSH) 32.609 uIU/mL (0.358-3.74) Medications Current Medications Famotidine (Pepcid Vial) 20 mg 1X ONCE IVP Last administered on 09/24/18at 19: 13; Start 09/24/18 at 19:00; Stop 09/24/18 at 19:01; Status DC Sodium Chloride 1,000 ml @ 1,000 mls/hr 1X ONCE IV Last administered on at 19:13; Start 09/24/18 at 19:00; Stop 09/24/18 at 19:59; Status DC Morphine Sulfate (Morphine Sulfate) 4 mg 1X ONCE IV Last administered on at 19:13; Start 09/24/18 at 19:00; Stop 09/24/18 at 19:01; Status DC Iohexol (Omnipaque 300 Mg/ml) 75 ml 1X ONCE IV Last administered on 09/24/18at 20:02; Start 09/24/18 at 20:00; Stop 09/24/18 at 20:01; Status DC Info (CONTRAST GIVEN -- Rx MONITORING) 1 each PRN DAILY PRN MC SEE COMMENTS; Start 09/24/18 at 20:00; Stop 09/26/18 at 19:59 Potassium Chloride (Klor-Con) 40 meq 1X ONCE PO Last administered on at 20:17; Start 09/24/18 at 20:15; Stop 09/24/18 at 20:16; Status DC Morphine Sulfate (Morphine Sulfate) 4 mg 1X ONCE IV Last administered on at 21:51; Start 09/24/18 at 21:15; Stop 09/24/18 at 21:16; Status DC Magnesium Citrate (Citroma) 296 ml 1X ONCE PO Last administered on 09/24/18at 21:15; Start 09/24/18 at 21:15; Stop 09/24/18 at 21:16; Status DC Potassium Chloride (Klor-Con) 40 meq 1X ONCE PO Last administered on at 21:51; Start 09/24/18 at 21:15; Stop 09/24/18 at 21:16; Status DC Ondansetron HCl (Zofran) 4 mg PRN Q8HRS PRN IV NAUSEA/VOMITING Last administered on 09/24/18at 23:11; Start 09/24/18 at 22:30; Stop 09/25/18 at 22:29 ; Status DC Morphine Sulfate (Morphine Sulfate) 4 mg PRN Q2HR PRN IV PAIN Last administered on 09/25/18at 02:34; Start 09/24/18 at 22:30; Stop 09/25/18 at 22:29 ; Status DC Potassium Chloride/Sodium Chloride 1,000 ml @ 75 mls/hr [id number] IV Last administered on 09/26/18 00:55; Start 09/24/18 at 22:30 Amlodipine Besylate (Norvasc) 10 mg DAILY PO Last administered on 09/25/18 07: 48; Start 09/24/18 at 23:45 Cetirizine HCl (ZyrTEC) 10 mg DAILY PO Last administered on 09/25/18 07:47; Start 09/25/18 at 09:00 Docusate Sodium (Colace) 100 mg BID PO Last administered on 09/25/18 21:57; Start 09/25/18 at 09:00 Acetaminophen/ Hydrocodone Bitart (Lortab 5/325) 1 tab PRN Q6HRS PRN PO PAIN Last administered on 09/25/18 16:29; Start 09/24/18 at 23:45 Levothyroxine Sodium (Synthroid) 100 mcg DAILY06 PO Last administered on 06:01; Start 09/25/18 at 06:00; Stop 09/25/18 at 12:44; Status DC Metoclopramide HCl (Reglan) 10 mg TID PO Last administered on 09/25/18 21:57; Start 09/25/18 at 09:00 Potassium Chloride (Klor-Con) 20 meq DAILYWBKFT PO Last administered on 07:47; Start 09/25/18 at 08:00 Bethanechol Chloride (Urecholine) 5 mg TIDAC PO Last administered on 09/25/18 16:29; Start 09/25/18 at 07:30 Capsaicin (Zostrix) 1 bridger TID TP Last administered on 09/25/18 21:56; Start at 09:00 Ciprofloxacin (Cipro) 500 mg BID PO Last administered on 09/25/18 07:47; Start 09/25/18 at 09:00; Stop 09/25/18 at 17:08; Status DC Non-Formulary Medication (Lidocaine ) 1 each Q12HR PRN TP PAIN; Start 09/24/18 at 23:45; Status UNV Pantoprazole Sodium (Protonix) 40 mg DAILYAC PO Last administered on 09/25/18 07:47; Start 09/25/18 at 07:30 Polyethylene Glycol (miraLAX PACKET) 17 gm BID PO Last administered on at 21:57; Start 09/25/18 at 09:00 Lidocaine (Lidoderm) 1 patch DAILY TD ; Start 09/25/18 at 09:00 Miscellaneous (Lidoderm Patch Removal) 1 ea QHS MC ; Start 09/25/18 at 21:00 Senna/Docusate Sodium (Senna Plus) 2 tab PRN BID PRN PO CONSTIPATION Last administered on 09/25/18at 16:29; Start 09/25/18 at 09:15 Polyethylene Glycol (miraLAX PACKET) 17 gm DAILY PO ; Start 09/25/18 at 09:15; Stop 09/25/18 at 17:03; Status DC Lubiprostone (Amitiza) 8 mcg BIDWMEALS PO Last administered on 09/25/18at 16:29 ; Start 09/25/18 at 09:15 Levothyroxine Sodium (Synthroid) 125 mcg DAILY06 PO Last administered on at 06:00; Start 09/26/18 at 06:00 Active Scripts Active Lidocaine 1 Each Adh..patch 1 Each TP Q12HR PRN apply patch to knee- remove every 12 hours and reapply if needed Bethanechol Chloride 5 Mg Tablet 5 Mg PO TIDAC 30 Days Levothyroxine Sodium 100 Mcg Tablet 1 Tab PO DAILY 30 Days Capsaicin 60 Gm Cream..g. 1 [place] TP TID 30 Days Polyethylene Glycol 3350 17 Gm Powd.pack 17 Gm PO BID 14 Days Klor-Con M20 (Potassium Chloride) 20 Meq Tab.er.prt 20 Meq PO DAILYWBKFT 14 Days [place] 5-325 Tablet (Acetaminophen/Hydrocodone Bitart) 1 Each Tablet 1 Tab PO PRN Q6HRS PRN Protonix (Pantoprazole Sodium) 20 Mg Tablet.dr 40 Mg PO DAILY Reglan (Metoclopramide Hcl) 10 Mg Tablet 1 Tab PO TID Reported Clonidine Hcl 0.2 Mg Tablet 0.2 Mg PO TID PRN Colace (Docusate Sodium) 100 Mg Capsule 1 Cap PO BID Zyrtec (Cetirizine Hcl) 10 Mg Tablet 1 Tab PO DAILY Hydrochlorothiazide Tablet (Hydrochlorothiazide) 25 Mg Tablet 1 Tab PO DAILY Amlodipine Besylate 10 Mg Tablet 10 Mg PO DAILY Vitals/I & O Vital Sign - Last 24 Hours 09/25/18 09/25/18 09/25/18 09/25/18 07:55 08:00 11:00 15:00 Temp 96.3 97.8 96.3 97.8 Pulse 76 80 Resp 20 20 20 B/P (MAP) 141/74 (96) 122/63 (82) Pulse Ox 98 97 93 O2 Delivery Room Air Room Air Room Air Room Air 09/25/18 09/25/18 09/25/18 09/25/18 16:29 17:18 19:00 23:00 Temp 97.8 98.7 97.8 98.7 Pulse 83 81 Resp 20 20 18 20 B/P (MAP) 137/69 (91) 132/77 (95) Pulse Ox 93 93 94 97 O2 Delivery Room Air Room Air 09/26/18 09/26/18 09/26/18 03:00 04:42 04:43 Temp 98.0 98.0 98.0 98.0 98.0 98.0 Pulse 81 81 81 Resp 20 20 20 B/P (MAP) 130/84 (99) 130/84 (99) 130/84 (99) Pulse Ox 97 97 97 Intake and Output 09/25/18 09/25/18 09/26/18 15:00 23:00 07:00 Intake Total 1080 ml 600 ml 1720 ml Balance 1080 ml 600 ml 1720 ml CHUN TEJADA MD Sep 26, 2018 07:48
[2018-09-26] MEDS: LIDOCAINE (700MG/PATCH) PATCH. TD SCH (09:00)
[2018-09-26] MEDS ORDERED: POTASSIUM CHLORIDE 20 MEQ TABLET.ER. PO ONE (09:00)
[2018-09-26] MEDS: METOCLOPRAMIDE 10 MG TABLET. PO SCH ×3 (09:15→20:15)
[2018-09-26] MEDS: amLODIPine BESYLATE 10 MG TABLET PO SCH (09:15)
[2018-09-26] MEDS: LUBIPROSTONE 8 MCG CAPSULE PO SCH ×2 (09:15→17:44)
[2018-09-26] MEDS: BETHANECHOL CHLORIDE 10 MG TABLET. PO SCH ×3 (09:16→19:00)
[2018-09-26] MEDS: PANTOPRAZOLE 40 MG TABLET.DR. PO SCH (09:17)
[2018-09-26] MEDS: CETIRIZINE HCL 10 MG TABLET. PO SCH (09:18)
[2018-09-26] MEDS: POTASSIUM CHLORIDE 20 MEQ TABLET.ER. PO SCH (09:20)
[2018-09-26] MEDS: DOCUSATE SODIUM 100 MG CAPSULE. PO SCH ×2 (09:21→20:15)
[2018-09-26] MEDS: POLYETHYLENE GLYCOL 3350 17 GM PACKET. PO SCH ×2 (09:22→20:15)
[2018-09-26] MEDS: CAPSAICIN 0.025% TOPICAL CREAM 60GM TUBE. TP SCH ×3 (09:24→20:15)
[2018-09-26] MEDS: HYDROcodone/APAP 5/325MG 1 TAB TABLET PO PRN ×2 (09:25→15:46)
--- NOTE | 2018-09-26 10:13 | PDOC ---
Subjective: Subjective: Left knee pain. Tolerating PO, hasn't stooled. Objective: Vital Signs: Vital Signs Date Time Temp Pulse Resp B/P (MAP) Pulse Ox O2 Delivery O2 Flow Rate FiO2 09/26/18 09:25 96 Room Air 09/26/18 09:15 76 144/89 09/26/18 07:00 97.9 19 97.9 PE: GEN: NAD - was sleeping/snoring, present LUNGS: room air ABD: S/ND/NT NEURO/PSYCH: A & O 3, difficult to understand at times A/P: Left knee pain Chronic abd pain - h/o GERD and small ulcers, h/o mild gastroparesis Hypothyroidism Non-compliance +cocaine -- Continue same per GI, DC per primary. EVELYN RIVER Sep 26, 2018 10:13
[2018-09-26] MEDS ORDERED: BISACODYL 5 MG TABLET.DR. PO ONE (11:00)
--- NOTE | 2018-09-26 13:30 | NUR ---
SW following. Discussed with RN, OT screen advised pt would benefit from a PT/OT eval. PT/OT has been ordered, SW will continue to follow for PT/OT recommendations at discharge. RN notified.
[2018-09-26] MEDS: PATCH REMOVAL. MC SCH (20:19)
[2018-09-27 02:44] VITALS: BP 122/83
[2018-09-27] MEDS: HYDROcodone/APAP 5/325MG 1 TAB TABLET PO PRN ×2 (04:44→11:11)
[2018-09-27] MEDS: LEVOTHYROXINE 125 MCG TABLET PO SCH (05:38)
[2018-09-27 07:00] VITALS: BP 151/89
[2018-09-27] MEDS: amLODIPine BESYLATE 10 MG TABLET PO SCH (08:55)
[2018-09-27] MEDS: METOCLOPRAMIDE 10 MG TABLET. PO SCH ×3 (08:55→20:19)
[2018-09-27] MEDS: CETIRIZINE HCL 10 MG TABLET. PO SCH (08:55)
[2018-09-27] MEDS: CAPSAICIN 0.025% TOPICAL CREAM 60GM TUBE. TP SCH ×4 (08:55→20:19)
[2018-09-27] MEDS: POTASSIUM CHLORIDE 20 MEQ TABLET.ER. PO SCH (08:55)
[2018-09-27] MEDS: PANTOPRAZOLE 40 MG TABLET.DR. PO SCH (08:55)
[2018-09-27] MEDS: LUBIPROSTONE 8 MCG CAPSULE PO SCH ×2 (08:55→16:48)
[2018-09-27] MEDS: DOCUSATE SODIUM 100 MG CAPSULE. PO SCH ×2 (08:55→20:19)
[2018-09-27] MEDS: LIDOCAINE (700MG/PATCH) PATCH. TD SCH ×3 (08:56→13:44)
[2018-09-27] MEDS: POLYETHYLENE GLYCOL 3350 17 GM PACKET. PO SCH ×2 (08:56→20:19)
[2018-09-27] MEDS ORDERED: LEVO125T PO (08:57)
[2018-09-27] MEDS: BETHANECHOL CHLORIDE 10 MG TABLET. PO SCH ×3 (09:27→16:48)
--- NOTE | 2018-09-27 10:30 | PDOC3 ---
Discharge Summary Visit Information Date of Admission: Sep 24, 2018 Date of Discharge: Sep 27, 2018 Admitting Diagnosis Comment: Left knee pain Chronic abd pain - h/o GERD and small ulcers, h/o mild gastroparesis Hypothyroidism Non-compliance +cocaine Brief Hospital Course Allergies Allergies Coded Allergies Type Severity Reaction Last Updated Verified lisinopril Allergy Severe "THROAT SWELLS" 09/10/17 Yes azithromycin Allergy Intermediate 09/09/17 Yes latex Allergy Intermediate Rash 03/31/18 Yes Vital Signs Vital Signs Date Time Temp Pulse Resp B/P (MAP) Pulse Ox O2 Delivery O2 Flow Rate FiO2 09/27/18 08:55 89 151/89 09/27/18 08:00 Room Air 09/27/18 07:00 98.1 20 100 98.1 Brief Hospital Course Ms. Hernandez is a 58 old -Chinese female who was admitted because of chronic abdominal pain. Workup negative. She also had some left knee pain but that seems to be okay. Noncompliance, positive UDS. TSH is 36. I did educate her in significant time in the room about her abdominal issues constipation lack of energy etc. and TSH levels. He supposed to be on Synthroid 100 but she admits not taking. Rx again written for her. Heavy education counseling more than 30 minutes for this. Consults performed GI Procedures performed none SHe tends to like her narcotics-requested refill of her Canmer-I have provided 20 pills Discharge Information Condition at Discharge: Improved, Stable Follow Up: Weeks (rpt TSH T3-T4 in 4-6 weeks' time-Rx on chart) Disposition/Orders: D/C to Home Scheduled Amlodipine Besylate (Amlodipine Besylate) 10 Mg Tablet, 10 MG PO DAILY, ( Reported) Entered as Reported by: BERT DUDLEY on 09/10/172119 Last Action: Continued on 09/24/182334 by AMAURY BAUGH Bethanechol Chloride (Bethanechol Chloride) 5 Mg Tablet, 5 MG PO TIDAC for gastroparesis for 30 Days, #90 Prescribed by: CHUN TEJADA MD on 06/02/18 1301 Last Action: Converted on 09/24/182334 by AMAURY BAUGH Capsaicin (Capsaicin) 60 Gm Cream..g., 1 LILIANA TP TID for 30 Days, #90 Prescribed by: RAMONITA THOMAS MD on 04/04/18 1541 Last Action: Converted on 09/24/182334 by AMAURY BAUGH Cetirizine Hcl (Zyrtec) 10 Mg Tablet, 1 TAB PO DAILY, #30 Ref 2 (Reported) Entered as Reported by: BERT DUDLEY on 09/10/172119 Last Action: Continued on 09/24/182334 by AMAURY BAUGH Docusate Sodium (Colace) 100 Mg Capsule, 1 CAP PO BID, #30 (Reported) Entered as Reported by: BERT DUDLEY on 09/10/172119 Last Action: Continued on 09/24/182334 by AMAURY BAUGH Hydrochlorothiazide (Hydrochlorothiazide Tablet ) 25 Mg Tablet, 1 TAB PO DAILY, #30 Ref 5 (Reported) Entered as Reported by: BERT DUDLEY on 09/10/172119 Levothyroxine Sodium (Levothyroxine Sodium) 100 Mcg Tablet, 1 TAB PO DAILY for hypothyroidism for 30 Days, #30 Ref 5 Prescribed by: CHUN TEJADA MD on 06/02/18 1130 Last Action: Continued on 09/24/182334 by AMAURY BAUGH Levothyroxine Sodium (Synthroid) 125 Mcg Tablet, 125 MCG PO DAILY06 for hypothy MDD 1 for 60 Days, #60 Prescribed by: MIGUEL ROMO on 09/27/18 0857 Metoclopramide Hcl (Reglan) 10 Mg Tablet, 1 TAB PO TID, #90 Prescribed by: MIGUEL ROMO on 09/12/17 1356 Last Action: Continued on 09/24/182334 by AMAURY BAUGH Pantoprazole Sodium (Protonix) 20 Mg Tablet.dr, 40 MG PO DAILY, #30 Prescribed by: RAMONITA THOMAS MD on 04/04/18 1538 Last Action: Converted on 09/24/182334 by AMAURY BAUGH Polyethylene Glycol 3350 (Polyethylene Glycol 3350) 17 Gm Powd.pack, 17 GM PO BID for 14 Days, #28 Prescribed by: RAMONITA THOMAS MD on 04/04/18 1538 Last Action: Converted on 09/24/182334 by AMAURY BAUGH Potassium Chloride (Klor-Con M20) 20 Meq Tab.er.prt, 20 MEQ PO DAILYWBKFT for 14 Days, #14 Prescribed by: RAMONITA THOMAS MD on 04/04/18 153 Last Action: Continued on 09/24/182334 by AMAURY BAUGH Scheduled PRN Clonidine Hcl (Clonidine Hcl) 0.2 Mg Tablet, 0.2 MG PO TID PRN for HYPERTENSION , SEE COMMENTS, (Reported) Entered as Reported by: AMAURY BAUGH on 09/24/182334 Last Action: New Order on 09/24/182334 by AMAURY BAUGH Hydrocodone/Apap 5-325 (Canmer 5-325 Tablet) 1 Each Tablet, 1 TAB PO PRN Q6HRS PRN for PAIN, #10 Ref 0 Prescribed by: RAMONITA THOMAS MD on 04/04/181537 Last Action: Continued on 09/24/182334 by AMAURY BAUGH Lidocaine (Lidocaine) 1 Each Adh..patch, 1 EACH TP Q12HR PRN for PAIN, #6 Ref 0 apply patch to knee- remove every 12 hours and reapply if needed Prescribed by: DEJA NICOLE APRN on 08/18/18 1720 Last Action: Converted on 09/24/182334 by AMAURY BAUGH Discontinued Medications Ciprofloxacin Hcl (Cipro) 500 Mg Tablet, 1 TAB PO BID for 5 Days, #10 Discontinued Reason: OLD RX Prescribed by: RAMONITA THOMAS MD on 04/04/18 1540 Last Action: Discontinued on 09/25/181707 by Katherin Ray [facility] MIGUEL ROMO MD Sep 27, 2018 10:30
[2018-09-27 11:00] VITALS: BP 134/95
[2018-09-27 15:00] VITALS: BP 150/84
[2018-09-27] MEDS ORDERED: BUPIVACAINE MPF 0.5% 10 ML VIAL. IJ ONE (17:30)
[2018-09-27] MEDS ORDERED: methylPREDNISolone ACETATE 80 MG/ML VIAL. IM ONE (17:30)
--- NOTE | 2018-09-27 18:36 | NUR ---
Discharge order cancelled. Ortho has not seen patient.
[2018-09-27 19:00] VITALS: BP 145/95
[2018-09-27] MEDS: PATCH REMOVAL. MC SCH (20:19)
[2018-09-27 23:00] VITALS: BP 137/77
[2018-09-28] MEDS: HYDROcodone/APAP 5/325MG 1 TAB TABLET PO PRN ×2 (02:32→08:42)
[2018-09-28 03:12] VITALS: BP 145/94
--- NOTE | 2018-09-28 04:31 | CONS ---
DATE OF CONSULTATION: 09/27/2018 REQUESTING PHYSICIANS: Dr. Katz and Dr. Graves. REASON FOR CONSULTATION: Left knee pain. HISTORY OF PRESENT ILLNESS: The patient is a 58-year-old female who was admitted with chronic abdominal pain that has been constant, but worsened on this admission. She has a history apparently of some stomach ulcers and abdominal tumors resected and really does not follow with a primary care physician. She indicates that actually, her right knee seemed to be hurting her more than the left at the present time, although I was consulted for left knee pain and effusion. She says she has had chronic right knee pain and some catching. She has been followed by [facility] for many years. Indicates that she was previously advised at that she needed a knee arthroplasty, but they would not do it unless she quit smoking and she really had no intention of doing that, this was about 2 years ago. She says injections in the past really have not worked and she just has ongoing knee pain. She indicates seeing a couple of other doctors that likewise told her that her knee has worn out and she needs knee replacement, but never did get it done. PAST MEDICAL HISTORY: Significant for hypertension, reflux, peptic ulcer disease, rheumatoid and osteoarthritis, history of urinary tract infections, hypothyroidism and chronic abdominal pain. PAST SURGICAL HISTORY: Cholecystectomy, hysterectomy and apparently abdominal surgeries. FAMILY HISTORY: Heart disease. SOCIAL HISTORY: Continues to smoke, occasional alcohol use and she admits to use of cocaine very recently. MEDICATIONS: List is reviewed. ALLERGIES: INCLUDE LISINOPRIL, AZITHROMYCIN AND LATEX. REVIEW OF SYSTEMS: Significant mainly for her right knee pain and swelling that is termination clerk and chronic in nature, the chronic abdominal pain worsened on this admission, history of urinary tract infections. No fever, chills, chest pain, shortness of breath, focal weakness, numbness, tingling, radiating pain into the extremities. PHYSICAL EXAMINATION: GENERAL: Pleasant, conversational 58-year-old female, alert and oriented, in no acute distress. EXTREMITIES: On examination of the right knee, she has a mild effusion, slight valgus, mainly medial joint line tenderness. Moderate patellofemoral crepitus. No gross ligamentous instability. Examination of left knee reveals good ligamentous stability. Mild joint line tenderness. Negative Lane's on either knee. Normal ligamentous examination on the left. Normal alignment, stability of bilateral hips and ankles with intact distal pulses, sensation, reflexes, skin in lower extremities throughout both lower extremities throughout. X-rays including views of bilateral knees from 08/18/2018 show tricompartmental degenerative changes, worse in the medial compartment on the right. She has mild medial joint line narrowing on the left. No evidence of fracture or other bony abnormality. 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 TREATMENT PLAN: I discussed alternatives with her, offered her the possibility of an injection for temporary relief. She says those have not worked. She came in wanting a knee replacement. I explained to her that the knee replacement, first of all, is not without its risks of infection and other complications. Drug use is a big complication risk, as is smoking. She said she just wants to get her knee done and wants to stop suffering with it, and I told her that does require her cooperation. I recommended that if she was treated termination clerk by other doctors that offered her the surgery that she should probably comply with their requirements. In any case, she is just welcome to followup on an outpatient basis for further discussion of knee arthroplasty. Apparently, she has previously visited another member in our group and I encouraged her to return there or to for further discussions, but that she would likely need to modify her lifestyle significantly as well in terms of drug use and smoking as those would be very significant risk factors for a poor outcome. All her questions were answered at this time. Again, followup can be on an as needed basis elsewhere as above. RICHARD PYLE MD DR: CATA/maria de jesus JOB#: [id number] / [id number]
[2018-09-28] MEDS: LEVOTHYROXINE 125 MCG TABLET PO SCH (05:29)
[2018-09-28 07:00] VITALS: BP 148/89
[2018-09-28] MEDS: POLYETHYLENE GLYCOL 3350 17 GM PACKET. PO SCH (08:41)
[2018-09-28] MEDS: BETHANECHOL CHLORIDE 10 MG TABLET. PO SCH ×2 (08:41→11:53)
[2018-09-28] MEDS: CETIRIZINE HCL 10 MG TABLET. PO SCH (08:42)
[2018-09-28] MEDS: PANTOPRAZOLE 40 MG TABLET.DR. PO SCH (08:42)
[2018-09-28] MEDS: LUBIPROSTONE 8 MCG CAPSULE PO SCH (08:42)
[2018-09-28] MEDS: POTASSIUM CHLORIDE 20 MEQ TABLET.ER. PO SCH (08:42)
[2018-09-28] MEDS: DOCUSATE SODIUM 100 MG CAPSULE. PO SCH (08:42)
[2018-09-28] MEDS: amLODIPine BESYLATE 10 MG TABLET PO SCH (08:42)
[2018-09-28] MEDS: METOCLOPRAMIDE 10 MG TABLET. PO SCH (08:43)
[2018-09-28] MEDS: LIDOCAINE (700MG/PATCH) PATCH. TD SCH (08:46)
[2018-09-28] MEDS: CAPSAICIN 0.025% TOPICAL CREAM 60GM TUBE. TP SCH (08:47)
--- NOTE | 2018-09-28 09:03 | SNU/HH DC ---
DISCHARGE WITH HOME HEALTH DISCHARGE INFORMATION: Discharge Date: Sep 28, 2018 Condition on Discharge: Stable CODE STATUS: Code Status: Full HOME HEALTH: Face to Face: I certify this patient is under my care and that I, or a nurse practitioner or physician's mobile unit assistant working with me, had a face to face encounter that meets the physician face to face encounter requirements with this patient on []. Physical Therapy For: Evalulation/Treatment Occupational Therapy For: Evaluation/Treatment Speech Language Pathology For: Evaluation/Treatment PLATE KEEPER For: Community Resources Pt Meets Homebound Status: Other: (seveer OA< rt knee) POST DISCHARGE ORDERS: Activity Instructions for Disc: Activity as tolerated Weight Bearing Status after Di: As tolerated DIET AFTER DISCHARGE: Regular CHECKS AFTER DISCHARGE: Checks after discharge: Check blood press - daily FOLLOW-UP: Follow up with: follow up with ortho as needed Follow Up With: Primary healthcare provider in 1-2 weeks TREATMENT/EQUIPMENT ORDERS: Adaptive Equipment Issued: Four wheeled walker CERTIFICATION STATEMENT: Certification Statement: Certification Statement: Based on the above finding, I certify that this patient is confined to the home and needs intermittent residential care, physical therapy and/or speech therapy, or continues to need occupational therapy.~ This patient is under my care, and I have initiated the establishment of the plan of care.~ This patient will be followed by myself or a community physician who will periodically review the plan of care. Home Meds Active Scripts Levothyroxine Sodium (SYNTHROID) 125 Mcg Tablet, 125 MCG PO DAILY06 for hypothy MDD 1 for 60 Days, #60 TAB Prov:MIGUEL ROMO MD 09/27/18 Lidocaine (Lidocaine) 1 Each Adh..patch, 1 EACH TP Q12HR PRN for PAIN, #6 PATCH 0 Refills apply patch to knee- remove every 12 hours and reapply if needed Prov:DEJA NICOLE APRN 08/18/18 Bethanechol Chloride (BETHANECHOL CHLORIDE) 5 Mg Tablet, 5 MG PO TIDAC for gastroparesis for 30 Days, #90 TAB Prov:CHUN TEJADA MD 06/02/18 Levothyroxine Sodium (LEVOTHYROXINE SODIUM) 100 Mcg Tablet, 1 TAB PO DAILY for hypothyroidism for 30 Days, #30 TAB 5 Refills Prov:CHUN TEJADA MD 06/02/18 Capsaicin (CAPSAICIN) 60 Gm Cream..g., 1 LILIANA TP TID for 30 Days, #90 EACH Prov:RAMONITA THOMAS MD 04/04/18 Polyethylene Glycol 3350 (POLYETHYLENE GLYCOL 3350) 17 Gm Powd.pack, 17 GM PO BID for 14 Days, #28 PKT Prov:RAMONITA THOMAS MD 04/04/18 Potassium Chloride (KLOR-CON M20) 20 Meq Tab.er.prt, 20 MEQ PO DAILYWBKFT for 14 Days, #14 TAB.SR Prov:RAMONITA THOMAS MD 04/04/18 Hydrocodone/Apap 5-325 (NORCO 5-325 TABLET) 1 Each Tablet, 1 TAB PO PRN Q6HRS PRN for PAIN, #10 TAB 0 Refills Prov:RAMONITA THOMAS MD 04/04/18 Pantoprazole Sodium (PROTONIX) 20 Mg Tablet.dr, 40 MG PO DAILY, #30 TAB Prov:RAMONITA THOMAS MD 04/04/18 Metoclopramide Hcl (REGLAN) 10 Mg Tablet, 1 TAB PO TID, #90 TAB Prov:MIGUEL ROMO MD 09/12/17 Reported Medications Clonidine Hcl (CLONIDINE HCL) 0.2 Mg Tablet, 0.2 MG PO TID PRN for HYPERTENSION , SEE COMMENTS, TAB 09/24/18 Docusate Sodium (COLACE) 100 Mg Capsule, 1 CAP PO BID, #30 CAP 09/10/17 Cetirizine Hcl (ZYRTEC) 10 Mg Tablet, 1 TAB PO DAILY, #30 TAB 2 Refills 09/10/17 Hydrochlorothiazide (HYDROCHLOROTHIAZIDE TABLET ) 25 Mg Tablet, 1 TAB PO DAILY, #30 TAB 5 Refills 09/10/17 Amlodipine Besylate (AMLODIPINE BESYLATE) 10 Mg Tablet, 10 MG PO DAILY, TAB 09/10/17 Discontinued Scripts Ciprofloxacin Hcl (CIPRO) 500 Mg Tablet, 1 TAB PO BID for 5 Days, #10 TAB Prov:RAMONITA THOMAS MD 04/04/18 MIGULE ROMO MD Sep 28, 2018 09:03
--- NOTE | 2018-09-28 09:04 | SNU/HH DC ---
DISCHARGE WITH HOME HEALTH DISCHARGE INFORMATION: Discharge Date: Sep 28, 2018 Condition on Discharge: Stable CODE STATUS: Code Status: Full HOME HEALTH: Face to Face: I certify this patient is under my care and that I, or a nurse practitioner or physician's certified pathology assistant working with me, had a face to face encounter that meets the physician face to face encounter requirements with this patient on []. POST DISCHARGE ORDERS: Activity Instructions for Disc: Activity as tolerated Weight Bearing Status after Di: As tolerated DIET AFTER DISCHARGE: Regular CHECKS AFTER DISCHARGE: Checks after discharge: Check blood press - daily FOLLOW-UP: Follow up with: follow up with ortho needs RT TKA Follow Up With: Primary healthcare provider in 4-6 weeks, rpt TSH levels - rx given TREATMENT/EQUIPMENT ORDERS: Adaptive Equipment Issued: Four wheeled walker CERTIFICATION STATEMENT: Certification Statement: Certification Statement: Based on the above finding, I certify that this patient is confined to the home and needs intermittent custodial care, physical therapy and/or speech therapy, or continues to need occupational therapy.~ This patient is under my care, and I have initiated the establishment of the plan of care.~ This patient will be followed by myself or a community physician who will periodically review the plan of care. Home Meds Active Scripts Levothyroxine Sodium (SYNTHROID) 125 Mcg Tablet, 125 MCG PO DAILY06 for hypothy MDD 1 for 60 Days, #60 TAB Prov:MIGUEL ROMO MD 09/27/18 Lidocaine (Lidocaine) 1 Each Adh..patch, 1 EACH TP Q12HR PRN for PAIN, #6 PATCH 0 Refills apply patch to knee- remove every 12 hours and reapply if needed Prov:DEJA NICOLE APRN 08/18/18 Bethanechol Chloride (BETHANECHOL CHLORIDE) 5 Mg Tablet, 5 MG PO TIDAC for gastroparesis for 30 Days, #90 TAB Prov:CHUN TEJADA MD 06/02/18 Levothyroxine Sodium (LEVOTHYROXINE SODIUM) 100 Mcg Tablet, 1 TAB PO DAILY for hypothyroidism for 30 Days, #30 TAB 5 Refills Prov:CHUN TEJADA MD 06/02/18 Capsaicin (CAPSAICIN) 60 Gm Cream..g., 1 LILIANA TP TID for 30 Days, #90 EACH Prov:RAMONITA THOMAS MD 04/04/18 Polyethylene Glycol 3350 (POLYETHYLENE GLYCOL 3350) 17 Gm Powd.pack, 17 GM PO BID for 14 Days, #28 PKT Prov:RAMONITA THOMAS MD 04/04/18 Potassium Chloride (KLOR-CON M20) 20 Meq Tab.er.prt, 20 MEQ PO DAILYWBKFT for 14 Days, #14 TAB.SR Prov:RAMONITA THOMAS MD 04/04/18 Hydrocodone/Apap 5-325 (NORCO 5-325 TABLET) 1 Each Tablet, 1 TAB PO PRN Q6HRS PRN for PAIN, #10 TAB 0 Refills Prov:RAMONITA THOMAS MD 04/04/18 Pantoprazole Sodium (PROTONIX) 20 Mg Tablet.dr, 40 MG PO DAILY, #30 TAB Prov:RAMONITA THOMAS MD 04/04/18 Metoclopramide Hcl (REGLAN) 10 Mg Tablet, 1 TAB PO TID, #90 TAB Prov:MIGUEL ROMO MD 09/12/17 Reported Medications Clonidine Hcl (CLONIDINE HCL) 0.2 Mg Tablet, 0.2 MG PO TID PRN for HYPERTENSION , SEE COMMENTS, TAB 09/24/18 Docusate Sodium (COLACE) 100 Mg Capsule, 1 CAP PO BID, #30 CAP 09/10/17 Cetirizine Hcl (ZYRTEC) 10 Mg Tablet, 1 TAB PO DAILY, #30 TAB 2 Refills 09/10/17 Hydrochlorothiazide (HYDROCHLOROTHIAZIDE TABLET ) 25 Mg Tablet, 1 TAB PO DAILY, #30 TAB 5 Refills 09/10/17 Amlodipine Besylate (AMLODIPINE BESYLATE) 10 Mg Tablet, 10 MG PO DAILY, TAB 09/10/17 Discontinued Scripts Ciprofloxacin Hcl (CIPRO) 500 Mg Tablet, 1 TAB PO BID for 5 Days, #10 TAB Prov:RAMONITA THOMAS MD 04/04/18 MIGUEL ROMO MD Sep 28, 2018 09:04
--- NOTE | 2018-09-28 10:33 | PDOC ---
Provider Note Provider Note Patient did not DC yesterday, needed to wait for orthopedics to eval her Essentially orthopedic evaluation is what she expected, it is the same as what [facility] also are recommending She needs to be compliant with doctor's visits and medications, needs to quit recreational drug use and smoking She understands Plan: home today with home health as recommended by PT Rx on chart She did request for refills of her HCTZ at I have provided 60 pills with 1 refill sunil Garcia DC some done yesterday 09/27/18 MIGUEL ROMO MD Sep 28, 2018 10:33
[2018-09-28 11:00] VITALS: BP 130/78
--- NOTE | 2018-09-28 15:12 | NUR ---
Discharge Note: CHAD SANTOS DURHAM Discharge instructions and discharge home medications reviewed with Patient and a copy given. All questions have been answered and understanding verbalized. The following instructions and handouts were given: education regarding new medication. Discontinued lines and drains: Iv removed per protocol. Patient discharged home with with home health.
--- NOTE | 2018-09-29 16:30 | NUR ---
Post dc note: SW notified by overnight houseperson pt was discharged over the weekend but was unable to find HH that take pt's insurance. Pt does not have a PCP. Due to this, SW is not able to set up HH.
== END 2018-09-28 14:11 | disposition home or self-care (01) | DRG 641 ==
LOC: ER 17:49 → 5 SOUTH 21:26 → 5 NORTH 09-26 16:01
PROVIDERS: ADMIT Internal Medicine; ATTEND Internal Medicine
DX: E87.6 Hypokalemia (principal); F11.20 Opioid dependence, uncomplicated; K59.00 Constipation, unspecified; T40.2X5A Adverse effect of other opioids, initial encounter; K31.84 Gastroparesis; E03.9 Hypothyroidism, unspecified; F14.90 Cocaine use, unspecified, uncomplicated; F17.210 Nicotine dependence, cigarettes, uncomplicated; G47.33 Obstructive sleep apnea (adult) (pediatric); G89.29 Other chronic pain; I10 Essential (primary) hypertension; Z96.659 Presence of unspecified artificial knee joint; I25.10 Atherosclerotic heart disease of native coronary artery without angina pectoris; K21.9 Gastro-esophageal reflux disease without esophagitis; M06.9 Rheumatoid arthritis, unspecified; M17.0 Bilateral primary osteoarthritis of knee; Z87.440 Personal history of urinary (tract) infections; Z79.899 Other long term (current) drug therapy; Z90.49 Acquired absence of other specified parts of digestive tract; Z80.0 Family history of malignant neoplasm of digestive organs; Z86.010 Personal history of colon polyps; Z87.11 Personal history of peptic ulcer disease; Z90.710 Acquired absence of both cervix and uterus; Z91.19 Patient's noncompliance with other medical treatment and regimen; Z88.8 Allergy status to other drugs, medicaments and biological substances; Z88.1 Allergy status to other antibiotic agents; Z91.040 Latex allergy status; Z82.49 Family history of ischemic heart disease and other diseases of the circulatory system
CPT/HCPCS: 36415; 73564; 74177; 80048; 80053; 80307; 81001; 83690; 83735; 84443; 85025; 87086; 87804; 96361; 96374; 96375; 96376; 99406; G0480; J2270; J2405; J3490; J7030; J8597; Q9967; 97535; 99285-25

== ENCOUNTER 2018-11-21 14:57 | Emergency (ER) | payer OTHER ==
[~2018-11-21] VITALS: Ht 154.9 cm; Wt 75.3 kg
[~2018-11-21 14:57] MED LIST changes: +CLON0.2T PO; +LEVO125T PO
[2018-11-21 15:08] VITALS: BP 112/55
--- NOTE | 2018-11-21 15:28 | PHYS DOC ---
Past Medical History Past Medical History: Arthritis, Hypertension, Other Additional Past Medical Histor: GRAVES DISEASE. Past Surgical History: Hysterectomy, Other Additional Past Surgical Histo: TUMOR REMOVAL, BOWEL RESECTION,EYE RECONSTRUCTION Alcohol Use: None Drug Use: None Adult General Chief Complaint Chief Complaint: PUNCTURE WOUND HPI HPI Patient is a 58 year old F who arrives to ER tearful and upset regarding pain in L foot. She states yesterday she accidently stepped on a nail. The nail "went in very far". Pt states the pain has worsened overnight. Pt is wearing a knee brace on R leg and states she has a bad knee and is scheduled to get a knee replacement. Pt is unsure of her last tetanus shot. Review of Systems Review of Systems Constitutional: Denies fever or chills [] Eyes: Denies change in visual acuity, redness, or eye pain [] HENT: Denies nasal congestion or sore throat [] Respiratory: Denies cough or shortness of breath [] Cardiovascular: No additional information not addressed in HPI [] GI: Denies abdominal pain, nausea, vomiting, bloody stools or diarrhea [] : Denies dysuria or hematuria [] Musculoskeletal: Denies back pain or joint pain [] Integument: Denies rash or skin lesions [] Neurologic: Denies headache, focal weakness or sensory changes [] Endocrine: Denies polyuria or polydipsia [] All other systems were reviewed and found to be within normal limits, except as documented in this note. Current Medications Current Medications Current Medications Medications (Trade) Dose Ordered Sig/Fili Start Time Stop Time Status Last Admin Dose Admin Acetaminophen/ Hydrocodone Bitart (Lortab 10/325) 1 tab 1X ONCE 11/21/18 15:45 11/21/18 15:46 DC 11/21/18 15:38 1 TAB Diphtheria/ Tetanus/Acell Pertussis (Boostrix) 0.5 ml ONCE ONCE 11/21/18 16:00 11/21/18 16:01 11/21/18 15:38 0.5 ML Allergies Allergies Allergies Coded Allergies Type Severity Reaction Last Updated Verified lisinopril Allergy Severe "THROAT SWELLS" 09/10/17 Yes azithromycin Allergy Intermediate 09/09/17 Yes latex Allergy Intermediate Rash 03/31/18 Yes Physical Exam Physical Exam Constitutional: Well developed, well nourished, no acute distress, non-toxic appearance. [] HENT: Normocephalic, atraumatic, bilateral external ears normal, oropharynx moist, no oral exudates, nose normal. [] Eyes: PERRLA, EOMI, conjunctiva normal, no discharge. [] Neck: Normal range of motion, no tenderness, supple, no stridor. [] Cardiovascular:Heart rate regular rhythm, no murmur [] Lungs & Thorax: Bilateral breath sounds clear to auscultation [] Abdomen: Bowel sounds normal, soft, no tenderness, no masses, no pulsatile mas ses. [] Skin: Warm, dry, no erythema, no rash. [] Back: No tenderness, no CVA tenderness. [] Extremities: No tenderness, no cyanosis, no clubbing, ROM intact, no edema. [] Neurologic: Alert and oriented X 3, normal motor function, normal sensory function, no focal deficits noted. [] Psychologic: Affect normal, judgement normal, mood normal. [] Current Patient Data Vital Signs Vital Signs Date Time Temp Pulse Resp B/P (MAP) Pulse Ox O2 Delivery O2 Flow Rate FiO2 11/21/18 15:38 20 11/21/18 15:08 98.4 88 112/55 (74) 98 Room Air 98.4 EKG EKG [] Radiology/Procedures Radiology/Procedures [] Course & Med Decision Making Course & Med Decision Making Pertinent Labs and Imaging studies reviewed. (See chart for details) [] Dragon Disclaimer Dragon Disclaimer This electronic medical record was generated, in whole or in part, using a voice recognition dictation system. Departure Departure Impression: Primary Impression: Puncture wound of foot Disposition: 01 HOME, SELF-CARE Condition: IMPROVED Referrals: NO PCP (PCP) Patient Instructions: Puncture Wound, [id number] Additional Instructions: Soak the wound in soapy water daily. Keep covered and dry. Monitor for signs of infection. Scripts Ibuprofen (IBUPROFEN) 600 Mg Tablet 600 MG PO PRN Q6HRS PRN for INFLAMMATION for 5 Days, #15 TAB Prov: EVON BREEN 11/21/18 Hydrocodone/Apap 5-325 (NORCO 5-325 TABLET) 1 Each Tablet 1-2 TAB PO Q4-6HRS PRN for PAIN, #12 TAB Prov: EVON BREEN 11/21/18 Amoxicillin/Potassium Clav (AUGMENTIN 875-125 TABLET) 1 Each Tablet 1 TAB PO BID, #20 TAB Prov: EVON BREEN 11/21/18 EVON BREEN November 21, 2018 15:28
[2018-11-21] MEDS ORDERED: HYDROcodone/APAP 10/325 1 TAB TABLET PO ONE (15:45)
--- NOTE | 2018-11-21 15:48 | RAD ---
FOOT LEFT 3V History: Stepped on a nail, feels like something stuck inside Comparison: None. Findings: 3 views of the left foot are submitted. No radiopaque foreign body is identified. No acute fracture or dislocation is identified. Impression: 1. No radiographic foreign body or acute fracture is identified. Electronically signed by: Rudy Sims MD (11/21/2018 3:45 PM) [id number]
[2018-11-21] MEDS ORDERED: DIPHTH,PERTUSS(ACELL),TET TOX 0.5 ML DISP.SYRIN. VAX IM ONE (16:00)
[2018-11-21] MEDS ORDERED: AMOX1TAB61 PO (16:05)
[2018-11-21] MEDS ORDERED: IBUP-1007 PO (16:05)
[2018-11-21] MEDS ORDERED: HYDR-3164 PO (16:05)
== END 2018-11-21 16:14 | disposition home or self-care (01) ==
LOC: ER 14:57
DX: S91.332A Puncture wound without foreign body, left foot, initial encounter (principal); I10 Essential (primary) hypertension; Z91.040 Latex allergy status; Z88.1 Allergy status to other antibiotic agents; Z88.8 Allergy status to other drugs, medicaments and biological substances; W22.8XXA Striking against or struck by other objects, initial encounter; Y93.89 Activity, other specified; Y92.89 Other specified places as the place of occurrence of the external cause; Y99.8 Other external cause status
CPT/HCPCS: 73630; 90471; 90715; 99284

== ENCOUNTER 2018-12-22 15:05 | Emergency (ER) | payer OTHER ==
[~2018-12-22] VITALS: Ht 154.9 cm; Wt 72.6 kg
[~2018-12-22 15:05] MED LIST changes: +AMOX1TAB61 PO; +IBUP-1007 PO; +LIDO700A21 TP; -LIDO700A39 TP
[2018-12-22 15:30] VITALS: BP 146/74
--- NOTE | 2018-12-22 15:56 | PHYS DOC ---
Past Medical History Past Medical History: Arthritis, Hypertension, Other Additional Past Medical Histor: GRAVES DISEASE. Past Surgical History: Hysterectomy, Other Additional Past Surgical Histo: TUMOR REMOVAL, BOWEL RESECTION,EYE RECONSTRUCTION Alcohol Use: None Drug Use: None Adult General Chief Complaint Chief Complaint: MECHANICAL FALL HPI HPI Patient is a 58 year old [female] who presents with [left shoulder pain. States she had slipped going down the stairs 3 days ago, reports she has had to wear a brace on her right leg, so she always has problems going up and down stairs. States she just slipped, denies dizziness, denies discomfort prior to fall. States she has not taken anything for the discomfort, but she has had continued worsening of discomfort to her left shoulder, worse with movement. States it just feels like something is torn and she has some shooting pains going down arm. States she doesn't have any additional discomfort to her left side at this time, other than her shoulder, has been walking with a limp but this is normal for her since having to wear the right knee brace. ] Review of Systems Review of Systems Constitutional: Denies fever or chills [] Eyes: Denies change in visual acuity, redness, or eye pain [] Respiratory: Denies cough or shortness of breath [] Cardiovascular: No additional information not addressed in HPI [] GI: Denies abdominal pain, nausea, vomiting, bloody stools or diarrhea [] : Denies dysuria or hematuria [] Musculoskeletal: Denies back pain, reports pain to upper neck, left lateral, complains of pain to left shoulder on movement [] Integument: Denies rash or skin lesions [] Neurologic: Denies headache, focal weakness or sensory changes [] Endocrine: Denies polyuria or polydipsia [] All other systems were reviewed and found to be within normal limits, except as documented in this note. Current Medications Current Medications Current Medications Medications (Trade) Dose Ordered Sig/Fili Start Time Stop Time Status Last Admin Dose Admin Acetaminophen/ Hydrocodone Bitart (Lortab 5/325) 1 tab 1X ONCE 12/22/18 16:45 12/22/18 16:46 DC 12/22/18 16:54 1 TAB Cyclobenzaprine HCl (Flexeril) 10 mg 1X ONCE 12/22/18 16:00 12/22/18 16:01 DC Allergies Allergies Allergies Coded Allergies Type Severity Reaction Last Updated Verified lisinopril Allergy Severe "THROAT SWELLS" 09/10/17 Yes azithromycin Allergy Intermediate 09/09/17 Yes latex Allergy Intermediate Rash 03/31/18 Yes Physical Exam Physical Exam Constitutional: Well developed, well nourished, no acute distress, non-toxic appearance. [] Neck: Normal range of motion, no tenderness, supple, no stridor. No tenderness over spinous processes. reporting tenderness over muscles to lateral neck. worsening of pain in left arm on movement of head to the left and right[] Abdomen: Bowel sounds normal, soft, no tenderness, no masses, no pulsatile masses. [] Skin: Warm, dry, no erythema, no rash. [] Back: No tenderness, no CVA tenderness. [] Extremities: No tenderness, no cyanosis, no clubbing, no edema. Passive movement of arm with no resistance noted, no apprehension. Can drop test normal, able to raise laterally with minimal discomfort, able to push backwards with hand behind back. no click, no crepitus on movement of arm through shoulder ROM.[] Neurologic: Alert and oriented X 3, normal motor function, normal sensory function, no focal deficits noted. Sensory intact to radial and ulnar nerve - does report some intermittent shooting pain down to 4th/5th digit. Lockstitch Zipper Setter equal, strong. [] Psychologic: Affect normal, judgement normal, mood normal. [] Current Patient Data Vital Signs Vital Signs Date Time Temp Pulse Resp B/P (MAP) Pulse Ox O2 Delivery O2 Flow Rate FiO2 12/22/18 16:54 22 96 12/22/18 15:30 98.6 86 146/74 (98) Room Air 98.6 EKG EKG [] Radiology/Procedures Radiology/Procedures 1) Mild degenerative changes 2) No acute bony abnormality is detected. Electronically signed by Mario Avila MD 12/22/18 @ 4:31 pm[] Course & Med Decision Making Course & Med Decision Making Pertinent Labs and Imaging studies reviewed. (See chart for details) [Upon RN attempting to administer Flexeril, patient reports she had taken flexeril this morning and it "does nothing". Discussed radiologic findings with patient, will recommend continued use of home pain medications, follow up with PCP, use sling for the next few days. Dragon Disclaimer Dragon Disclaimer This electronic medical record was generated, in whole or in part, using a voice recognition dictation system. Departure Departure Impression: Primary Impression: Left shoulder pain Additional Impression: Fall (on) (from) other stairs and steps, initial encounter Disposition: HOME, SELF-CARE Condition: GOOD Referrals: NO PCP (PCP) Patient Instructions: Arm Sling Use, [id number], Shoulder Pain, [id number] Additional Instructions: As we discussed, you can continue to take your Flexeril at home We have given you a pain medication here Take ibuprofen when you get home, the ibuprofen will work well as an antiinflammatory for the discomfort Use the sling for the next few days, to take the pressure off your shoulder and decrease your discomfort - take your arm out a few times throughout the day and exercise it Follow up with your primary care provider in the next 2-3 days if you continue to have discomfort Problem Qualifiers Primary Impression: Left shoulder pain Chronicity: acute Qualified Codes: M25.512 - Pain in left shoulder BERT HANSON APRN Dec 22, 2018 15:56
[2018-12-22] MEDS ORDERED: CYCLOBENZAPRINE 10 MG TABLET. PO ONE (16:00)
--- NOTE | 2018-12-22 16:34 | RAD ---
Left shoulder, 3 views, 12/22/2018: HISTORY: Pain after a fall No fracture or dislocation is identified. There are mild degenerative change at the glenohumeral and acromioclavicular articulations. The periarticular soft tissues are unremarkable. IMPRESSION: 1. Mild degenerative change. 2. No acute bony abnormality is detected. Electronically signed by: Mario Avila MD (12/22/2018 4:31 PM) [facility]
[2018-12-22] MEDS ORDERED: HYDROcodone/APAP 5/325MG 1 TAB TABLET PO ONE (16:45)
== END 2018-12-22 16:55 | disposition home or self-care (01) ==
LOC: ER 15:05
DX: M25.512 Pain in left shoulder (principal); M54.2 Cervicalgia; M19.90 Unspecified osteoarthritis, unspecified site; I10 Essential (primary) hypertension; Z90.710 Acquired absence of both cervix and uterus; Z88.1 Allergy status to other antibiotic agents; Z88.8 Allergy status to other drugs, medicaments and biological substances; Z91.040 Latex allergy status; W10.8XXA Fall (on) (from) other stairs and steps, initial encounter; Y93.89 Activity, other specified; Y92.89 Other specified places as the place of occurrence of the external cause; Y99.8 Other external cause status
CPT/HCPCS: 73030; 99284

== ENCOUNTER 2019-01-14 19:10 | Emergency (ER) | payer OTHER ==
[~2019-01-14] VITALS: Ht 154.9 cm; Wt 72.6 kg
[2019-01-14 19:30] VITALS: BP 168/86
--- NOTE | 2019-01-14 23:24 | PHYS DOC ---
Past Medical History Past Medical History: Arthritis, Hypertension, Other Additional Past Medical Histor: GRAVES DISEASE Past Surgical History: Hysterectomy, Other Additional Past Surgical Histo: TUMOR REMOVAL,BOWEL RESECTION,EYE RECONSTRUCTION,L HAND,R ELBOW Additional Information: 0.5 PPD Alcohol Use: None Drug Use: None Adult General Chief Complaint Chief Complaint: MECHANICAL FALL HPI HPI This patient left without being seen[] Review of Systems Review of Systems Constitutional: Denies fever or chills [] Eyes: Denies change in visual acuity, redness, or eye pain [] HENT: Denies nasal congestion or sore throat [] Respiratory: Denies cough or shortness of breath [] Cardiovascular: No additional information not addressed in HPI [] GI: Denies abdominal pain, nausea, vomiting, bloody stools or diarrhea [] : Denies dysuria or hematuria [] Musculoskeletal: Denies back pain or joint pain [] Integument: Denies rash or skin lesions [] Neurologic: Denies headache, focal weakness or sensory changes [] Endocrine: Denies polyuria or polydipsia [] All other systems were reviewed and found to be within normal limits, except as documented in this note. Allergies Allergies Allergies Coded Allergies Type Severity Reaction Last Updated Verified lisinopril Allergy Severe "THROAT SWELLS" 09/10/17 Yes azithromycin Allergy Intermediate 09/09/17 Yes latex Allergy Intermediate Rash 03/31/18 Yes Physical Exam Physical Exam Constitutional: Well developed, well nourished, no acute distress, non-toxic appearance. [] HENT: Normocephalic, atraumatic, bilateral external ears normal, oropharynx moist, no oral exudates, nose normal. [] Eyes: PERRLA, EOMI, conjunctiva normal, no discharge. [] Neck: Normal range of motion, no tenderness, supple, no stridor. [] Cardiovascular:Heart rate regular rhythm, no murmur [] Lungs & Thorax: Bilateral breath sounds clear to auscultation [] Abdomen: Bowel sounds normal, soft, no tenderness, no masses, no pulsatile masses. [] Skin: Warm, dry, no erythema, no rash. [] Back: No tenderness, no CVA tenderness. [] Extremities: No tenderness, no cyanosis, no clubbing, ROM intact, no edema. [] Neurologic: Alert and oriented X 3, normal motor function, normal sensory function, no focal deficits noted. [] Psychologic: Affect normal, judgement normal, mood normal. [] Current Patient Data Vital Signs Vital Signs Date Time Temp Pulse Resp B/P (MAP) Pulse Ox O2 Delivery O2 Flow Rate FiO2 01/14/19 19:30 97.8 96 18 168/86 (113) 98 Room Air 97.8 EKG EKG [] Radiology/Procedures Radiology/Procedures [] Course & Med Decision Making Course & Med Decision Making Pertinent Labs and Imaging studies reviewed. (See chart for details) [] Dragon Disclaimer Dragon Disclaimer This electronic medical record was generated, in whole or in part, using a voice recognition dictation system. Departure Departure Impression: Primary Impression: Patient left without being seen Disposition: HOME/RESIDENCE PRIOR TO ADM Condition: LEFT WITHOUT BEING SEEN LIAT GUTIÉRREZ DO Jan 14, 2019 23:23
== END 2019-01-14 20:38 | disposition home or self-care (01) ==
LOC: ER 19:10
DX: M79.10 Myalgia, unspecified site (principal); G89.11 Acute pain due to trauma; I10 Essential (primary) hypertension; F17.200 Nicotine dependence, unspecified, uncomplicated; Z88.1 Allergy status to other antibiotic agents; Z91.040 Latex allergy status; Z88.8 Allergy status to other drugs, medicaments and biological substances; Z53.21 Procedure and treatment not carried out due to patient leaving prior to being seen by health care provider; W10.8XXA Fall (on) (from) other stairs and steps, initial encounter; Y93.89 Activity, other specified; Y92.89 Other specified places as the place of occurrence of the external cause; Y99.8 Other external cause status
CPT/HCPCS: 99281